=== PATIENT | female | born 1935 | race Caucasian/White ===

== ENCOUNTER 2019-06-08 10:52 | Inpatient (IN) ==
--- NOTE | 2019-06-08 11:33 | Emergency Department Note ---
Impression & Plan Ataxia, Vertigo ED Provider Note NAME: JONNY STEINBERG AGE: 83 SEX: F : 1935 ARRIVES VIA: Walk-In INFORMANT: Patient, ED PROVIDER(S): Antonio Demarco DO CHIEF COMPLAINT: Dizziness HPI: The patient is an 83-year-old female who presented to the emergency department for an evaluation of disequilibrium and difficulty walking. Patient states that approximately 1 week ago she started noticing symptoms of vertigo. The patient states that she has ongoing symptoms which have been waxing and waning. She was started on Antivert by her primary care physician without any improvement. The patient initially was seen at an urgent care center. She was referred to the emergency department if symptoms did not improve over the next few days. The patient called her primary care physician in [facility] and is scheduled to follow-up with an ear nose and throat physician but not until July. The patient states her symptoms are worsened with any ambulation but also worsened with head movement. She states that her symptoms are very severe and she needs help with any ambulation. She currently is residing with her daughter. She denies any headache. She denies having any unilateral weakness in the arms or legs other than generalized weakness. The patient states that she was using a Q-tip on her ear and had some bleeding in her right ear. The patient denies having any chest pain. She denies any swelling in the legs. ROS: See above HPI for pertinent positives & negatives. A total of 10 systems reviewed and were otherwise negative. PAST MEDICAL HISTORY: See Below PAST SURGICAL HISTORY: See Below FAMILY HISTORY: See Below SOCIAL HISTORY: See Below HOME MEDICATIONS: See Below ALLERGIES: See Below VITALS: See Below PHYSICAL EXAMINATION: GENERAL: Patient is awake alert in no acute distress patient is resting comfortably and showing no signs of anxiety EYES: The conjunctivae are clear. The pupils are round and reactive. No nystagmus was elicited. EARS, NOSE, MOUTH AND THROAT: The nose is without any evidence of any deformity. Mucous membranes are moist. Tympanic membranes are clear. NECK: The neck is nontender and supple. RESPIRATORY: Normal respiratory effort is noted there is no evidence of wheezing rhonchi or rales CARDIOVASCULAR: Regular rate and rhythm noted there no murmurs rubs or gallops normal S1 normal S2. GASTROINTESTINAL: The abdomen is soft. Abdomen is nontender. MUSCULOSKELETAL/EXTREMITIES: There is no evidence of gross deformity full range of motion is noted in the hips and shoulders. SKIN: There is no obvious evidence of any rash. Trace pedal edema was noted bilaterally. NEUROLOGIC: Patient is awake alert and oriented x3 strength is symmetric patellar reflexes are 2+ bilaterally. There is no past-pointing with the upper extremities. MEDICAL DECISION MAKING: The patient is an 83-year-old female who presented to the emergency department for an evaluation of difficulty ambulating. The patient started noticing vertigo symptoms proximally 1 week ago today. She has increasing symptoms with turning of her head as well as trying to walk. The patient started noticing worsening in her ataxia over the last few days. She was initially seen at an urgent care center. She was then sent to follow-up with her primary care physician. She was unable to get a follow-up appointment with her ENT doctor and was referred back to the emergency department because of her symptoms. 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 The patient's blood vessels did not appear to show any acute occlusion. The patient was reevaluated multiple times. The patient did not do well with an ambulation trial. I discussed the patient's laboratory and radiographic studies with her. Given her ongoing symptoms as well as findings on CAT scan I do feel she may require further inpatient work-up and management. She may require further neuroimaging or possibly an evaluation by a neurologist. This reason I discussed her case with the on-call [facility] hospitalist group. They have agreed to evaluate the patient in the emergency department for further management and disposition. Triage Nursing notes reviewed. Prior medical records reviewed Vital Signs: reviewed and remarkable for initial hypertension which improved on subsequent monitoring. Differential diagnosis: Benign positional vertigo, dehydration, hypovolemia, anemia, tumor, infection, hypoglycemia, electrolyte abnormalities, cardiac sources, intracerebral event, toxicologic, neurologic, as well as other pathologies. ER treatment provided: See below Diagnostics interpreted by me: ECG: EKG was obtained in the emergency department. My interpretation is sinus bradycardia at 58 bpm. There was no ectopy. Right bundle branch block pattern was noted. No previous tracing was available for comparison. Cardiac Monitoring: An order was placed for continuous cardiac monitoring. The monitor shows a rate of 62 with sinus rhythm. Laboratory studies: As stated above and show below. Imaging studies: See below Consultation(s): 1420: I discussed this case with Dr. Mccollum. He is covering for the [facility] hospitalist group. He is agreed to evaluate the patient in the emergency department for further management and disposition. ED COURSE: Procedures: none Past Med/Surg History Medical History Esophageal cancer High cholesterol Hypothyroid Surgical History H/O: hysterectomy History of bunionectomy Hx of cholecystectomy Social History Feels Safe at Home: Yes Smoking Status: Former smoker Allergies Allergies Allergy/AdvReac Type Severity Reaction Status Date / Time No Known Allergies Allergy Verified 06/08/19 14:02 Home Meds Home Medications Medication Instructions Recorded Confirmed aspirin [Aspirin Low Dose] 81 mg PO DAILY 06/08/19 06/08/19 calcium carbonate [Calcium 600] 0 mg PO DAILY 06/08/19 06/08/19 cholecalciferol (vitamin D3) 0 mcg PO DAILY 06/08/19 06/08/19 [Vitamin D3] levothyroxine 25 mcg PO QAM 06/08/19 06/08/19 meclizine 12.5 mg PO UD PRN 06/08/19 06/08/19 multivitamin 1 tab PO DAILY 06/08/19 06/08/19 ondansetron 4 mg PO UD PRN 06/08/19 06/08/19 rosuvastatin 10 mg PO QPM 06/08/19 06/08/19 Results & Data (ED) Vital Signs Vital Signs - 24 hr 06/08/19 10:56 06/08/19 11:12 06/08/19 11:20 Temperature 36.7 C Temperature Source Oral Pulse Rate 78 68 63 Pulse Rate from SpO2 Sensor Respiratory Rate 20 20 17 Respiratory Effort / Characteristics Non-Labored Respiratory Depth Normal Blood Pressure 195/88 H Blood Pressure Mean 123 Pulse Oximetry 98 Oxygen Delivery Method Room Air Sepsis Action Taken by Nursing No Action Required 06/08/19 11:30 06/08/19 11:40 06/08/19 11:50 Temperature Temperature Source Pulse Rate 70 64 67 Pulse Rate from SpO2 Sensor Respiratory Rate 20 16 19 Respiratory Effort / Characteristics Respiratory Depth Blood Pressure Blood Pressure Mean Pulse Oximetry Oxygen Delivery Method Sepsis Action Taken by Nursing 06/08/19 12:00 06/08/19 12:10 06/08/19 12:20 Temperature Temperature Source Pulse Rate 60 59 L 58 L Pulse Rate from SpO2 Sensor Respiratory Rate 18 20 1 L Respiratory Effort / Characteristics Respiratory Depth Blood Pressure Blood Pressure Mean Pulse Oximetry Oxygen Delivery Method Sepsis Action Taken by Nursing 06/08/19 12:35 06/08/19 12:40 06/08/19 12:41 Temperature Temperature Source Pulse Rate 63 59 L 67 Pulse Rate from SpO2 Sensor 59 L 67 Respiratory Rate 19 20 15 Respiratory Effort / Characteristics Respiratory Depth Blood Pressure 128/88 Blood Pressure Mean 101 Pulse Oximetry 96 94 Oxygen Delivery Method Sepsis Action Taken by Nursing 06/08/19 12:50 06/08/19 13:00 06/08/19 13:10 Temperature Temperature Source Pulse Rate 61 58 L 57 L Pulse Rate from SpO2 Sensor 60 58 L 57 L Respiratory Rate 18 18 18 Respiratory Effort / Characteristics Respiratory Depth Blood Pressure 121/61 Blood Pressure Mean 78 Pulse Oximetry 92 94 95 Oxygen Delivery Method Sepsis Action Taken by Nursing 06/08/19 13:20 06/08/19 13:30 06/08/19 13:40 Temperature Temperature Source Pulse Rate 63 62 62 Pulse Rate from SpO2 Sensor Respiratory Rate 21 15 17 Respiratory Effort / Characteristics Respiratory Depth Blood Pressure Blood Pressure Mean Pulse Oximetry Oxygen Delivery Method Sepsis Action Taken by Nursing 06/08/19 13:50 06/08/19 14:00 06/08/19 14:10 Temperature Temperature Source Pulse Rate 57 L 56 L 58 L Pulse Rate from SpO2 Sensor Respiratory Rate 19 17 19 Respiratory Effort / Characteristics Respiratory Depth Blood Pressure Blood Pressure Mean Pulse Oximetry Oxygen Delivery Method Sepsis Action Taken by Nursing 06/08/19 14:20 06/08/19 14:30 06/08/19 14:37 Temperature Temperature Source Pulse Rate 58 L 56 L 58 L Pulse Rate from SpO2 Sensor Respiratory Rate 19 17 20 Respiratory Effort / Characteristics Respiratory Depth Blood Pressure 131/65 Blood Pressure Mean 95 Pulse Oximetry 96 Oxygen Delivery Method Sepsis Action Taken by Nursing Laboratory Data Attestation: I reviewed the patient's lab results. Result diagrams: 06/08/19 11:50 06/08/19 11:50 Lab Results 06/08/19 06/08/19 06/08/19 Range/Units 11:50 11:50 11:50 WBC 5.66 (4.8-10.8) K/uL RBC 4.67 (4.2-5.4) M/uL Hgb 15.4 (12.0-16.0) g/dL Hct 46.2 (37-47) % MCV 98.9 (80-100) fL MCH 33.0 (25-34) pg MCHC 33.3 (32-36) g/dL RDW Std Deviation 51.5 H (36.4-46.3) fL RDW Coeff of Eros 14.3 (11.5-14.5) % Plt Count 199 (130-400) K/uL MPV 9.5 (7.4-10.4) fL Immature Gran % (Auto) 0.0 % Neut % (Auto) 51.4 % Lymph % (Auto) 32.9 % [place] % (Auto) 11.7 % Eos % (Auto) 3.5 % Baso % (Auto) 0.5 % Immature Gran # (Auto) 0.00 (0.00-0.02) K/uL Neut # (Auto) 2.91 (1.4-6.5) K/uL Lymph # (Auto) 1.86 (1.2-3.4) K/uL [place] # (Auto) 0.66 H (0.11-0.59) K/uL Eos # (Auto) 0.20 (0-0.5) K/uL Baso # (Auto) 0.03 (0-0.2) K/uL PT 10.9 (9.0-12.0) Seconds INR 1.0 (0.9-1.1) APTT 26.8 (21.0-31.0) Seconds PTT Ratio 1.0 Sodium 138 (136-145) mmol/L Potassium 4.7 (3.5-5.1) mmol/L Chloride 104 (98-107) mmol/L Carbon Dioxide 30 (21-32) mmol/L Anion Gap 4.0 (3-11) BUN 16 (7-18) mg/dl Creatinine 0.93 (0.6-1.2) mg/dl Est Cr Clr Drug Dosing 38.8 ml/min Est GFR ( Amer) 66.3 Est GFR (Non-Af Amer) 57.2 BUN/Creatinine Ratio 17.4 (10-20) Glucose 92 (70-99) mg/dl Calcium 9.3 (8.5-10.1) mg/dl Magnesium 2.4 (1.8-2.4) mg/dl Total Bilirubin 0.6 (0.2-1) mg/dl AST 20 (15-37) U/L ALT 25 (12-78) U/L Alkaline Phosphatase 92 (45-117) U/L Troponin I < 0.015 (0-0.045) ng/ml Total Protein 7.4 (6.4-8.2) gm/dl Albumin 3.5 (3.4-5.0) gm/dl Globulin 3.9 (2.5-4.0) gm/dl Albumin/Globulin Ratio 0.9 (0.9-2) Urine Color Urine Appearance (Clear) Urine pH (4.5-7.5) Ur Specific [place] (1.000-1.030) Urine Protein (Negative) Urine Glucose (UA) (Negative) Urine Ketones (Negative) Urine Blood (Negative) Urine Nitrite (Negative) Urine Bilirubin (Negative) Urine Urobilinogen (Negative) Ur Leukocyte Esterase (Negative) Urine WBC (Auto) (0-5) /hpf Urine RBC (Auto) (0-4) /hpf U Hyaline Cast (Auto) (0-5) /lpf U Epithel Cells (Auto) (0-5) /lpf Urine Bacteria (Auto) (Negative) 06/08/19 Range/Units 14:37 WBC (4.8-10.8) K/uL RBC (4.2-5.4) M/uL Hgb (12.0-16.0) g/dL Hct (37-47) % MCV (80-100) fL MCH (25-34) pg MCHC (32-36) g/dL RDW Std Deviation (36.4-46.3) fL RDW Coeff of Eros (11.5-14.5) % Plt Count (130-400) K/uL MPV (7.4-10.4) fL Immature Gran % (Auto) % Neut % (Auto) % Lymph % (Auto) % [place] % (Auto) % Eos % (Auto) % Baso % (Auto) % Immature Gran # (Auto) (0.00-0.02) K/uL Neut # (Auto) (1.4-6.5) K/uL Lymph # (Auto) (1.2-3.4) K/uL [place] # (Auto) (0.11-0.59) K/uL Eos # (Auto) (0-0.5) K/uL Baso # (Auto) (0-0.2) K/uL PT (9.0-12.0) Seconds INR (0.9-1.1) APTT (21.0-31.0) Seconds PTT Ratio Sodium (136-145) mmol/L Potassium (3.5-5.1) mmol/L Chloride (98-107) mmol/L Carbon Dioxide (21-32) mmol/L Anion Gap (3-11) BUN (7-18) mg/dl Creatinine (0.6-1.2) mg/dl Est Cr Clr Drug Dosing ml/min Est GFR ( Amer) Est GFR (Non-Af Amer) BUN/Creatinine Ratio (10-20) Glucose (70-99) mg/dl Calcium (8.5-10.1) mg/dl Magnesium (1.8-2.4) mg/dl Total Bilirubin (0.2-1) mg/dl AST (15-37) U/L ALT (12-78) U/L Alkaline Phosphatase (45-117) U/L Troponin I (0-0.045) ng/ml Total Protein (6.4-8.2) gm/dl Albumin (3.4-5.0) gm/dl Globulin (2.5-4.0) gm/dl Albumin/Globulin Ratio (0.9-2) Urine Color Yellow Urine Appearance Clear (Clear) Urine pH 5.0 (4.5-7.5) Ur Specific [place] 1.045 H (1.000-1.030) Urine Protein Negative (Negative) Urine Glucose (UA) Negative (Negative) Urine Ketones Negative (Negative) Urine Blood Trace H (Negative) Urine Nitrite Negative (Negative) Urine Bilirubin Negative (Negative) Urine Urobilinogen Negative (Negative) Ur Leukocyte Esterase Negative (Negative) Urine WBC (Auto) 0 (0-5) /hpf Urine RBC (Auto) 0-4 (0-4) /hpf U Hyaline Cast (Auto) 1-5 (0-5) /lpf U Epithel Cells (Auto) 10-20 H (0-5) /lpf Urine Bacteria (Auto) Negative (Negative) Administered Medications Ioversol (Optiray 320 125ml) 119 ml IV ONCE PRN PRN Reason: Interaction Checking Stop: 06/12/19 12:25 Last Admin: 06/08/19 12:26 Dose: 119 ml Documented by: [id number] Discontinued Medications Labetalol HCl (Normodyne) 10 mg IV NOW STA Stop: 06/08/19 14:13 Last Admin: 06/08/19 14:39 Dose: Not Given Documented by: [id number] Meclizine HCl (Antivert) 25 mg PO NOW STA Stop: 06/08/19 13:20 Last Admin: 06/08/19 14:34 Dose: 25 mg Documented by: [id number] Imaging Data Radiologist's Impression: XR chest 1V portable CLINICAL HISTORY: weakness dyspnea COMPARISON STUDY: No previous studies for comparison. FINDINGS: The bones soft tissues and hemidiaphragms are normal. The cardiome diastinal silhouette is normal. The lungs are clear. The pulmonary vasculature is normal. IMPRESSION: Negative chest. ACT 112: Negative or not required by law. The above report was generated using voice recognition software. It may contain grammatical, syntax or spelling errors. Electronically signed by: Tarik Howard M.D. 06/08/2019 12:14 PM Dictated: 06/08/19 1214 Transcribed: 06/08/[address] angio neck with con HISTORY: Stroke evaluation TECHNIQUE: Multiaxial CT angiography of the neck was performed IV contrast: 100 cc All measurements were calculated based on NASCET criteria. Maximum intensity projection images were also obtained. A dose lowering technique was utilized adhering to the principles of ALARA. COMPARISON STUDY: None. FINDINGS: The aortic arch and proximal great vessels are widely patent. 50% atherosclerotic narrowing proximal left internal carotid artery and left carotid bifurcation. Minimal plaque formation right carotid bifurcation. No significant stenosis of the vertebral basilar system. IMPRESSION: 50% stenosis left carotid bifurcation and proximal left internal carotid artery. No evidence for high-grade or significant stenotic process. ACT 112: Negative or not required by law. The above report was generated using voice recognition software. It may contain grammatical, syntax or spelling errors. Electronically signed by: Tarik Howard M.D. 06/08/2019 12:[address] angio head w con HISTORY: Status change Stroke evaluation TECHNIQUE: Multiaxial CT angiography of the head was performed IV contrast: None. Maximum intensity projection images were also obtained. A dose lowering technique was utilized adhering to the principles of ALARA. COMPARISON: None. FINDINGS: There is no mass, hematoma, midline shift, or acute infarct. Visualized intracranial internal carotid arteries, distal vertebral arteries, and basilar artery are widely patent. There is no significant stenosis, occlusion, or aneurysm seen within the bilateral ACAs, MCAs, or research software engineer. IMPRESSION: No significant stenosis, occlusion, or aneurysm within the [place]. Moderate atherosclerotic plaque formation at the carotid siphons ACT 112: Negative or not required by law. The above report was generated using voice recognition software. It may contain grammatical, syntax or spelling errors. Electronically signed by: Tarik Howard M.D. 06/08/2019 12:41 PM Dictated: 06/08/19 1240 Transcribed: 06/08/[address] head/brain wo con CT DOSE: 997.03 mGy.cm HISTORY: Mental status change Stroke evaluation TECHNIQUE: Multiaxial CT images of the head were performed without the use of intravenous contrast. A dose lowering technique was utilized adhering to the principles of ALARA. Comparison: None. Findings: The paranasal sinuses and mastoid air cells are clear. The calvarium and skull base are intact. The ventricles and sulci are within normal limits. There is no mass, hematoma, midline shift, or acute infarct. 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 Old right occipital infarct ACT 112: Negative or not required by law. The above report was generated using voice recognition software. It may contain grammatical, syntax or spelling errors. Electronically signed by: Tarik Howard M.D. 06/08/2019 12:33 PM Dictated: 06/08/19 1232 Transcribed: 06/08/19 1232 Blood Pressure Blood Pressure Findings: Normal blood pressure Discharge Plan Visit Data Chief Complaint: Vertigo Stated Complaint: DIZZY FOR A WEEK ED Provider: Antonio Demarco Discharge Problem: Ataxia, Vertigo Patient Disposition: Being Evaluated by Hospitalist Condition: Good Forms Stand Alone Forms: [employer] Prescriptions Prescriptions: No Action multivitamin Tablet 1 tab PO DAILY RF: 0 meclizine 12.5 mg tablet 12.5 mg PO UD PRN (Reason: Dizziness) RF: 0 aspirin [Aspirin Low Dose] 81 mg Tablet,Delayed Release (Dr/Ec) 81 mg PO DAILY RF: 0 levothyroxine 25 mcg tablet 25 mcg PO QAM RF: 0 calcium carbonate [Calcium 600] 600 mg calcium (1,500 mg) Tablet 0 mg PO DAILY RF: 0 ondansetron 4 mg tablet,disintegrating 4 mg PO UD PRN (Reason: Nausea) RF: 0 cholecalciferol (vitamin D3) [Vitamin D3] 25 mcg (1,000 unit) Capsule 0 mcg PO DAILY RF: 0 rosuvastatin 10 mg tablet 10 mg PO QPM RF: 0 Referrals Referrals: Laura Thomas NP [Primary Care Provider] -
[2019-06-08 12:00] LABS: Basophils # (auto) 0.03 K/uL (0-0.2); Basophils % (auto) 0.5 %; Eosinophils % (auto) 3.5 %; Hematocrit (blood only) 46.2 % (37-47); Hemoglobin 15.4 g/dL (12.0-16.0); Lymphocytes # (auto) 1.86 K/uL (1.2-3.4); Lymphocytes % (auto) 32.9 %; Mean Corpuscular Hgb Conc 33.3 g/dL (32-36); Mean Corpuscular Volume 98.9 fL (80-100); Mean Platelet Volume 9.5 fL (7.4-10.4); Monocytes # (auto) 0.66 K/uL (0.11-0.59); Monocytes % (auto) 11.7 %; Neutrophils # (auto) 2.91 K/uL (1.4-6.5); Neutrophils % (auto) 51.4 %; Platelet Count 199 K/uL (130-400); RDW Coefficient of Variation 14.3 % (11.5-14.5); RDW Standard Deviation 51.5 fL (36.4-46.3); Red Blood Count 4.67 M/uL (4.2-5.4); White Blood Count 5.66 K/uL (4.8-10.8)
[2019-06-08 12:16] LABS: Partial Thromboplastin Time 26.8 Seconds (21.0-31.0); Prothrombin Time 10.9 Seconds (9.0-12.0)
--- NOTE | 2019-06-08 12:16 | XRay Report ---
XR chest 1V portable CLINICAL HISTORY: weakness dyspnea COMPARISON STUDY: No previous studies for comparison. FINDINGS: The bones soft tissues and hemidiaphragms are normal. The cardiomediastinal silhouette is n ormal. The lungs are clear. The pulmonary vasculature is normal. IMPRESSION: Negative chest. ACT 112: Negative or not required by law. The above report was generated using voice recognition software. It may contain grammatical, syntax or spelling errors. Electronically signed by: Tarik Howard M.D. 06/08/2019 12:14 PM
[2019-06-08 12:17] LABS: Alanine Aminotransferase 25 U/L (12-78); Albumin Level 3.5 gm/dl (3.4-5.0); Aspartate Aminotransferase 20 U/L (15-37); BUN Creatinine Ratio 17.4 (10-20); Blood Urea Nitrogen 16 mg/dl (7-18); Calcium 9.3 mg/dl (8.5-10.1); Carbon Dioxide 30 mmol/L (21-32); Chloride 104 mmol/L (98-107); Creatinine Clr Calc Pharmacy 38.8 ml/min; Est GFR (African American) 66.3; Est GFR (Non-African American) 57.2; Glucose 92 mg/dl (70-99); Magnesium 2.4 mg/dl (1.8-2.4); Potassium 4.7 mmol/L (3.5-5.1); Sodium 138 mmol/L (136-145)
[2019-06-08 12:21] LABS: Albumin Globulin Ratio 0.9 (0.9-2); Alkaline Phosphatase 92 U/L (45-117); Bilirubin,Total 0.6 mg/dl (0.2-1); Globulin 3.9 gm/dl (2.5-4.0); Total Protein 7.4 gm/dl (6.4-8.2); Troponin I < 0.015 ng/ml (0-0.045)
[2019-06-08] MEDS ORDERED: OPTIRAY 320 125ml IV PRN (12:26)
--- NOTE | 2019-06-08 12:34 | CT Scan Report ---
CT head/brain wo con CT DOSE: 997.03 mGy.cm HISTORY: Mental status change Stroke evaluation TECHNIQUE: Multiaxial CT images of the head were performed without the use of intravenous contrast. A dose lowering technique was utilized adhering to the principles of ALARA. Comparison: None. Findings: The paranasal sinuses and mastoid air cells are clear. The calvarium and skull base are int act. The ventricles and sulci are within normal limits. There is no mass, hematoma, midline shift, or acute infarct. 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 Old right occipital infarct ACT 112: Negative or not required by law. The above report was generated using voice recognition software. It may contain grammatical, syntax or spelling errors. Electronically signed by: Tarik Howard M.D. 06/08/2019 12:33 PM
--- NOTE | 2019-06-08 12:41 | CT Scan Report ---
CT angio neck with con HISTORY: Stroke evaluation TECHNIQUE: Multiaxial CT angiography of the neck was performed IV contrast: 100 cc All measurements were calculated based on NASCET criteria. Maximum intensity projection images were also obtained. A dose lowering technique was utilized adhering to the principles of ALARA. COMPARISON STUDY: None. FINDINGS: The aortic arch and proximal great vessels are widely patent. 50% atherosclerotic narrowin g proximal left internal carotid artery and left carotid bifurcation. Minimal plaque formation right carotid bifurcation. No significant stenosis of the vertebral basilar system. IMPRESSION: 50% stenosis left carotid bifurcation and proximal left internal carotid artery. No evidence for high -grade or significant stenotic process. ACT 112: Negative or not required by law. The above report was generated using voice recognition software. It may contain grammatical, syntax or spelling errors. Electronically signed by: Tarik Howard M.D. 06/08/2019 12:39 PM
--- NOTE | 2019-06-08 12:43 | CT Scan Report ---
CT angio head w con HISTORY: Status change Stroke evaluation TECHNIQUE: Multiaxial CT angiography of the head was performed IV contrast: None. Maximum intensit y projection images were also obtained. A dose lowering technique was utilized adhering to the princ iplUlises. COMPARISON: None. FINDINGS: There is no mass, hematoma, midline shift, or acute infarct. Visualized intracranial international accounting manager al carotid arteries, distal vertebral arteries, and basilar artery are widely patent. There is no sig nificant stenosis, occlusion, or aneurysm seen within the bilateral ACAs, MCAs, or chief dispatcher. IMPRESSION: No significant stenosis, occlusion, or aneurysm within the [place]. Moderate atherosclerotic plaque formation at the carotid siphons ACT 112: Negative or not required by law. The above report was generated using voice recognition software. It may contain grammatical, syntax or spelling errors. Electronically signed by: Tarik Howard M.D. 06/08/2019 12:41 PM
[2019-06-08] MEDS ORDERED: MECLIZINE HCL 25 MG TAB PO STA (13:19)
[2019-06-08] MEDS ORDERED: LABETALOL HCL IV 5 MG/ML 20ML IV STA (14:12)
--- NOTE | 2019-06-08 14:36 | Electrocardiogram Report ---
Test Reason : Blood Pressure : / mmHG Vent. Rate : 058 BPM Atrial Rate : 058 BPM P-R Int : 192 ms QRS Dur : 114 ms QT Int : 446 ms P-R-T Axes : 082 -09 041 degrees QTc Int : 437 ms Sinus bradycardia Right bundle branch block Borderline ECG No previous ECGs available Confirmed by Nirav Rhodes ([id number]) on 06/08/2019 2:35:47 PM Referred By: REFERRED SELF Confirmed By:Alli Rhodes
[2019-06-08 14:52] LABS: Appearance Urine Clear (Clear); Bacteria Urine Automated Negative (Negative); Bilirubin Urine Negative (Negative); Blood Urine Trace (Negative); Color Urine Yellow; Glucose Urine UA Negative (Negative); Ketones Urine Negative (Negative); Leukocyte Esterase Urine Negative (Negative); Nitrite Urine Negative (Negative); Protein Urine Negative (Negative); RBC Urine Automated 0-4 /hpf (0-4); Specific Gravity Urine 1.045 (1.000-1.030); Urobilinogen Urine Negative (Negative); WBC Urine Automated 0 /hpf (0-5)
--- NOTE | 2019-06-08 16:02 | History & Physical Report ---
Date of Service June 08, 2019 Assessment & Plan (1) Vertigo: Vertigo seems more benign positional vertigo especially considering worsening with head tilt and no other symptoms. However, patient did have incidental finding of a previous occipital stroke with questionable history in the past. Patient has significant ataxia and will be placed in observation. Index of suspicion that this is new CVAs very low. Check MRI of the brain. Trial of ATC Antivert. S neurology to evaluate for further recommendations. PT/OT evaluation. (2) CVA, old, disturbances of vision: Patient did evidence of an old CVA on CT scan. MRI as noted above. Patient is on low-dose aspirin. Check fasting lipids. Continue Crestor as previously ordered. (3) High cholesterol: Crestor as noted above. (4) Hypothyroid: Levothyroxine as noted above (5) Carotid stenosis: Patient with carotid stenosis on the left of around 50%. I suspect this may be incidental. Continue low-dose aspirin. Check fasting lipids, consider increasing Crestor depending on results. History of Present Illness Primary Care Provider: Laura Fallon NP This is a very pleasant 83-year-old female with past medical history of esophageal cancer, hypercholesterolemia, and hypothyroidism that presents with complaints of acute vertigo. Patient is a good historian although somewhat limited on past medical history. Patient tells me that approximately 1 week ago she started to experience symptoms of vertigo. This was very sudden onset, occurring in the late morning on . She states that there is a waxing and waning character to it although in the past 2-3 days it is become much worse. She denies any headaches with this but she does have ataxia when it is severe. She tells me is worse with any movement of the head including lying flat. She denies any problems with her hearing or tinnitus. She denies any headache or other neurological symptoms. At the time my evaluation the patient tells me that she is not having any symptoms but feel that she would if she sat backwards. 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 This has been accompanied with a headache but the patient did not seek medical attention at that time. This is relevant as the patient was found to have a previous small occipital CVA on initial CT. she did also note a previous 99% stenosis of a carotid, she cannot recall which side. She was previously evaluated [facility] for [facility]. Although typically there is no intervention for complete carotid blockage, I did describe CEA and she does recall having this in the past but again cannot recall which side. Allergies Allergy/AdvReac Type Severity Reaction Status Date / Time No Known Allergies Allergy Verified 06/08/19 14:02 Home Medications Home Medications Medication Instructions Recorded Confirmed Type aspirin [Aspirin Low Dose] 81 mg PO DAILY 06/08/19 06/08/19 History calcium carbonate [Calcium 600] 0 mg PO DAILY 06/08/19 06/08/19 History cholecalciferol (vitamin D3) 0 mcg PO DAILY 06/08/19 06/08/19 History [Vitamin D3] levothyroxine 25 mcg PO QAM 06/08/19 06/08/19 History meclizine 12.5 mg PO UD PRN 06/08/19 06/08/19 History multivitamin 1 tab PO DAILY 06/08/19 06/08/19 History ondansetron 4 mg PO UD PRN 06/08/19 06/08/19 History rosuvastatin 10 mg PO QPM 06/08/19 06/08/19 History Past Med/Surg History Medical History Esophageal cancer High cholesterol Hypothyroid Surgical History H/O: hysterectomy History of bunionectomy Hx of cholecystectomy Social History Feels Safe at Home: Yes Smoking Status: Former smoker Review of Systems Constitutional: no fever, no chills, no weakness, no weight loss and no weight gain Eyes: as per Subjective / HPI Respiratory: no cough, no chest congestion, no dyspnea and no dyspnea on exertion Cardiovascular: no chest pain, no orthopnea, no palpitations, no lightheadedness and no edema Gastrointestinal: no abdominal pain, no nausea, no vomiting, no constipation and no diarrhea/loose stools Genitourinary: no dysuria, no difficulty urinating, no urinary frequency, no urinary hesitancy, no urinary urgency and no flank pain Musculoskeletal: no back pain, no neck pain, no joint pain, no stiffness and no myalgia Integumentary: no rash Neurologic: + lack of coordination; no gait abnormality, no unsteadiness, no falls, no generalized weakness, no loss of sensation, no paresthesia, no tremor(s), no abnormal movements, no headache(s), no abnormal speech and no confusion vertigo Physical Exam Constitutional: cooperative; no acute distress Eyes: no nystagmus Neck: trachea midline, no thyromegaly Respiratory: normal respiratory effort Auscultation: lungs clear to auscultation bilaterally; no crackles, no rales, no rhonchi and no wheezes Cardiovascular: Rate/Rhythm: regular rate and regular rhythm Heart Sounds: normal S1 and normal S2 Vessels: no JVD and no carotid bruit Gastrointestinal (Abdomen): Inspection/Auscultation: abdomen normal to inspection Percussion/Palpation: abdomen soft; abdomen nontender, no guarding, abdomen not rigid and no hepatosplenomegaly Skin: no rashes, warm and dry Results & Data Results & Data ([facility]) Vital Signs (Past 12 Hours) Vital Signs Temp Pulse Resp BP Pulse Ox 06/08/19 15:10 60 20 06/08/19 15:01 60 19 118/75 06/08/19 15:00 60 19 06/08/19 14:50 66 18 06/08/19 14:40 60 20 06/08/19 14:37 58 L 20 131/65 96 06/08/19 14:30 56 L 17 06/08/19 14:20 58 L 19 06/08/19 14:10 58 L 19 06/08/19 14:00 56 L 17 06/08/19 13:50 57 L 19 06/08/19 13:40 62 17 06/08/19 13:30 62 15 06/08/19 13:20 63 21 06/08/19 13:10 57 L 18 95 06/08/19 13:00 58 L 18 121/61 94 06/08/19 12:50 61 18 92 06/08/19 12:41 67 15 128/88 94 06/08/19 12:40 59 L 20 96 06/08/19 12:35 63 19 06/08/19 12:20 58 L 1 L 06/08/19 12:10 59 L 20 06/08/19 12:00 60 18 06/08/19 11:50 67 19 06/08/19 11:40 64 16 06/08/19 11:30 70 20 06/08/19 11:20 63 17 06/08/19 11:12 68 20 06/08/19 10:56 36.7 C 78 20 195/88 H 98 Laboratory Results WBCs of 5.6, hemoglobin of 15.4, hematocrit of 46.2, platelets of 199. INR is 1. Sodium is 138, potassium 4.7, chloride 104, CO2 is 30, BUN is 16, creatinine is 0.93, glucose is 92. Calcium is 9.3. Magnesium is 2.4. LFTs are unremarkable and troponin is nondetectable. UA shows trace blood but is otherwise unremarkable. Diagnostic Findings XR chest 1V portable CLINICAL HISTORY: weakness dyspnea COMPARISON STUDY: No previous studies for comparison. FINDINGS: The bones soft tissues and hemidiaphragms are normal. The cardiomediastinal silhouette is normal. The lungs are clear. The pulmonary vasculature is normal. IMPRESSION: Negative chest. --- [place], [place] [phone] CT Scan Report Patient: JONNY STEINBERG Date: 06/08/19 MR#: [id number]: [address] Acct ID:[id number]: [address] Date: 1935[facility] Zip: [place] [address] Age: 83Location: ED Sex: F Room/Bed: Att Phy:Diagnosis: DIZZY FOR A WEEK Sita Phy: Javed FALLON Date: 06/08/19 Fam Phy:Interpreting Phy: Tarik Howard MD Admit Phy: Ordering Phy: Antonio Demarco DO cc: ~ CT head/brain wo con CT DOSE: 997.03 mGy.cm HISTORY: Mental status change Stroke evaluation TECHNIQUE: Multiaxial CT images of the head were performed without the use of intravenous contrast. A dose lowering technique was utilized adhering to the principles of ALARA. Comparison: None. Findings: The paranasal sinuses and mastoid air cells are clear. The calvarium and skull base are intact. The ventricles and sulci are within normal limits. There is no mass, hematoma, midline shift, or acute infarct. 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 Old right occipital infarct --- CT angio head w con HISTORY: Status change Stroke evaluation TECHNIQUE: Multiaxial CT angiography of the head was performed IV contrast: None. Maximum intensity projection images were also obtained. A dose lowering technique was utilized adhering to the principles of ALARA. COMPARISON: None. FINDINGS: There is no mass, hematoma, midline shift, or acute infarct. Visualized intracranial internal carotid arteries, distal vertebral arteries, and basilar artery are widely patent. There is no significant stenosis, occlusion, or aneurysm seen within the bilateral ACAs, MCAs, or research center partner. IMPRESSION: No significant stenosis, occlusion, or aneurysm within the ruby of Gonzalez. Moderate atherosclerotic plaque formation at the carotid siphons --- CT angio neck with con HISTORY: Stroke evaluation TECHNIQUE: Multiaxial CT angiography of the neck was performed IV contrast: 100 cc All measurements were calculated based on NASCET criteria. Maximum intensity projection images were also obtained. A dose lowering technique was utilized adhering to the principles of ALARA. COMPARISON STUDY: None. FINDINGS: The aortic arch and proximal great vessels are widely patent. 50% atherosclerotic narrowing proximal left internal carotid artery and left carotid bifurcation. Minimal plaque formation right carotid bifurcation. No significant stenosis of the vertebral basilar system. IMPRESSION: 50% stenosis left carotid bifurcation and proximal left internal carotid artery. No evidence for high-grade or significant stenotic process. PG Care Time/CCT Total # of Minutes Spent Total Time Spent with Patient: Total time spent is greater than 50% in coordination of care (as documented) at patient's floor/unit and/or counseling patient: Coding Level of Care Code 49769 OBS Care - Level 3 Diagnoses Vertigo R42 CVA, old, disturbances of vision I69.398; H53.9 High cholesterol E78.00 Hypothyroid E03.9 Carotid stenosis I65.29
[2019-06-08] MEDS ORDERED: POLYETHYLENE (MIRALAX) 17 GM PACK PO PRN (17:11)
[2019-06-08] MEDS ORDERED: ZOLPIDEM TARTRATE 5 MG TAB PO PRN (17:11)
[2019-06-08] MEDS ORDERED: MAGNESIUM HYDROXIDE SUSP 30 ML UDC PO PRN (17:11)
[2019-06-08] MEDS ORDERED: ONDANSETRON INJ 2 MG/ML 2 ML VIAL IV PRN (17:11)
[2019-06-08] MEDS ORDERED: ACETAMINOPHEN 325 MG TAB PO PRN (17:11)
--- NOTE | 2019-06-08 19:11 | Magnetic Resonance Report ---
MR brain wo con HISTORY: 83 years-old Female vertigo, old CVA acute dizziness with vertigo COMPARISON: CT head, CTA head and neck of same day TECHNIQUE: Planar multisequence MRI of the brain was obtained without the use of IV contrast. FINDINGS: Vp Medical localizer images demonstrate no gross extracranial abnormality. There is no restricted diffusio n to suggest acute or subacute infarct. The midline structures including the corpus callosum, brainst em, optic chiasm, pituitary and pineal glands appear unremarkable on the sagittal T1 series. No cereb ellar tonsillar herniation. Degenerative changes are noted about the imaged cervical spine. No acute intracranial hemorrhage, midline shift, abnormal extra-axial collection, hydrocephalus or in tracranial mass.. Encephalomalacia and gliosis of the right occipital lobe from remote infarct. Mild age-related involutional changes with mild scattered T2/FLAIR hyperintensities suggestive of chronic microvascular ischemic disease. Major vascular flow voids are patent. Mastoid air cells are clear. Mi ld rightward bowing and spurring of the nasal septum. Mild mucosal thickening of a few ethmoid air ce lls. Paranasal sinuses are otherwise generally clear. Prior bilateral cataract repair. The skull and soft tissues are within normal limits. IMPRESSION: 1. No acute intracranial abnormality, specifically there is no acute or subacute infarct. 2. Age-related involutional changes with mild chronic microvascular ischemic disease. 3. Remote right occipital lobe infarct. ACT 112: Negative or not required by law. The above report was generated using voice recognition software. It may contain grammatical, syntax o r spelling errors. Electronically signed by: Gus Tai M.D. 06/08/2019 7:10 PM
[2019-06-08] MEDS: ENOXAPARIN INJ 40 MG/0.4 ML SYR SQ SCH (20:00)
[2019-06-08] MEDS: ROSUVASTATIN CALCIUM 10 MG TAB PO SCH (20:00)
[2019-06-08] MEDS: MECLIZINE 12.5 MG TAB PO SCH (20:00)
[2019-06-09] MEDS: LEVOTHYROXINE SODIUM 25 MCG TABLET PO SCH (05:55)
[2019-06-09 06:57] LABS: Basophils # (auto) 0.04 K/uL (0-0.2); Basophils % (auto) 0.7 %; Eosinophils # (auto) 0.14 K/uL (0-0.5); Eosinophils % (auto) 2.5 %; Hematocrit (blood only) 41.8 % (37-47); Immature Granulocytes # (auto) 0.01 K/uL (0.00-0.02); Immature Granulocytes % (auto) 0.2 %; Lymphocytes # (auto) 1.95 K/uL (1.2-3.4); Lymphocytes % (auto) 34.8 %; Mean Corpuscular Hemoglobin 32.8 pg (25-34); Mean Corpuscular Hgb Conc 33.5 g/dL (32-36); Mean Corpuscular Volume 97.9 fL (80-100); Mean Platelet Volume 9.6 fL (7.4-10.4); Monocytes # (auto) 0.71 K/uL (0.11-0.59); Monocytes % (auto) 12.7 %; Neutrophils # (auto) 2.76 K/uL (1.4-6.5); Neutrophils % (auto) 49.1 %; Platelet Count 174 K/uL (130-400); RDW Coefficient of Variation 14.3 % (11.5-14.5); RDW Standard Deviation 51.3 fL (36.4-46.3); Red Blood Count 4.27 M/uL (4.2-5.4); White Blood Count 5.61 K/uL (4.8-10.8)
[2019-06-09 07:31] LABS: BUN Creatinine Ratio 17.2 (10-20); Calcium 8.5 mg/dl (8.5-10.1); Creatinine Clr Calc Pharmacy 32.3 ml/min; Est GFR (African American) 51.9; Est GFR (Non-African American) 44.7; Magnesium 2.2 mg/dl (1.8-2.4)
[2019-06-09] MEDS: CALCIUM CARBONATE 1250MG TAB PO SCH (09:16)
[2019-06-09] MEDS: MULTIVITAMIN TAB PO SCH (09:16)
[2019-06-09] MEDS: ASPIRIN 81 MG ECTAB PO SCH (09:16)
[2019-06-09] MEDS: MECLIZINE 12.5 MG TAB PO SCH ×2 (09:17→13:32)
--- NOTE | 2019-06-09 12:43 | Hospitalist Progress Note ---
Date of Service June 09, 2019 Assessment & Plan (1) Vertigo: - Vertigo possibly secondary to BPPV or vestibulocochlear involvement - vestibular neuritis?? patient reports that her symptoms are worse with head tilt and movement but that that also occurs while she is lying and sitting still. Otoscopic exam completed and is negative. -Old right occipital stroke - no new acute findings on CT/MRI/MRA head and neck. -Continue PT/OT, noted significant ataxia on admission, improved today, dis cussed with PT at bedside. -MRI of the brain is negative, neck CTA and head CTA are negative as well. -Has been using antivert since last Wednesday, no change in sx. Await neurology to evaluate for further recommendations. -Consider prednisone dosing to help with sx? (2) CVA, old, disturbances of vision: -Patient with evidence of an old CVA on CT scan. MRI as noted above. -Patient is on low-dose aspirin. 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 (3) High cholesterol: -Rosuvastatin 10 mg daily (pt taking every other day at home for several months prior to this admit) (4) Hypothyroid: -Levothyroxine 25 mcg daily -check TSH (5) Carotid stenosis: -Patient with carotid stenosis on the left of around 50%. -Continue low-dose aspirin. -Rosuvastatin as above monitor as outpt (6) DVT prophylaxis: - Lali watson subcu CODE STATUS full code Disposition: Patient from home, living with daughter locally, typically lives on her own independently, likely discharge within 1-2 days Admission and Anticipated Discharge Date Admission Date: June 08, 2019 Supervising Physician Co-Signing Physician Notes PA Supervision Note: I did not personally see or examine the patient today, but I verified all davis points of STALIN Ferrara's assessment and plan with the following exceptions/additions: Neurology consultation reviewed. MRI of the brain with contrast was ordered Given bradycardia to the low 30s on telemetry overnight and is not on any AV muriel blocking agents, will order echocardiogram and continue telemetry monitoring ECG reviewed and shows right bundle branch block, no old EKG to compare to -Follow EKG in the morning -Continued stay Subjective The patient was seen and examined this morning. Patient reports feeling essentially no different compared to yesterday. She also complains of feeling very tired and fatigued for the last week. She has been taking Antivert as scheduled, and Zofran occasionally for nausea. She notes that her nausea/dry heaving has improved but that this was happening prior to her admission here. Earlier this morning she work with PT/OT and Laurel-Hallpike maneuver was completed, unsure at this point if it helped or not. Interestingly, the patient cleaned her ears last and noted to have bleeding from the right ear which covered 5 Q-tips approximately, and her symptoms with dizziness and the room spinning started that evening. She denies any purulent drainage from the right ear, further bleeding, pressure, decreased hearing, or tinnitus. She typically lives at home by herself, but has been living with her daughter for the last 4 weeks due to COVID-19 in quarantine. They thought that it would be better if she needed any medical help to have some family around. Review of Systems Review of Systems: Constitutional: No fever, sweats or chills Eyes: No diplopia, no worsening or blurred vision, + vertigo with minimal movement of head and with lying still ENT: normal hearing, no trouble swallowing Respiratory: No cough, sputum, dyspnea at rest or on exertion Cardiovascular: No chest pain, tightness or palpitations Abdomen: No pain, nausea, vomiting, diarrhea or constipation Musculoskeletal: No joint pain, calf pain, swelling Neurologic: No weakness, numbness/tingling, or balance problems Psychiatric: No anxiety or depression Skin: No rash or itch Physical Exam Physical Exam: General: awake, alert, no apparent distress Head: Normocephalic, atraumatic ENT: PERRL, EOMI, TM visualized, pearly rodriguez, no erythema of the canal, no pain with palpation of the tragus, no air-fluid levels behind TM, cone of light visua lized, no pharyngeal exudate, mucous membranes moist Chest: Clear to auscultation, on room air, no adventitious breath sounds Cardiac: Regular rate and rhythm, no murmur, no JVD, normal peripheral pulses, good capillary refill Abdominal: NABS x 4 quadrants, soft, nondistended, nontender to palpation, no rebound, guarding or tenderness Extremities: Normal inspection, no peripheral edema or erythema, calfs nontender to palpation Psych: Normal mood and affect Neuro: AAO x 3, no motor deficits, speech is clear, no peripheral sensory deficits Skin: no rash or erythema Results & Data Results & Data ([facility]) Vital Signs (Past 12 Hours) Vital Signs Temp Pulse Resp BP Pulse Ox 06/09/19 11:41 36.8 C 64 18 109/71 94 06/09/19 07:33 36.6 C 60 18 104/64 92 06/09/19 04:00 36.9 C 57 L 18 115/57 L 94 PG Care Time/CCT Total # of Minutes Spent Total Time Spent with Patient: Total time spent is greater than 50% in coordination of care (as documented) at patient's floor/unit and/or counseling patient: Coding Level of Care Code 44617 Subseq Hosp Care Lvl 3 Diagnoses Vertigo R42 CVA, old, disturbances of vision I69.398; H53.9 High cholesterol E78.00 Hypothyroid E03.9 Carotid stenosis I65.29 DVT prophylaxis Z29.9
--- NOTE | 2019-06-09 17:11 | Neurology Consultation ---
Date of Consultation June 09, 2019 Assessment & Plan (1) High cholesterol: (2) Vertigo: Yesenia Oscar is an 83 yo woman w/ PMH of esophageal cancer s/p chemo/radiation (last in 2011), HLD and hypothyroidism who p/t [facility] after a one week history of acute onset dizziness. # Dizzy episodes: there is no clear peripheral vestibular component on exam today by myself or PT to suggest BPPV or vestibular neuritis as cause of dizziness. She does not have a h/o migraines to suggest vestibular migraine. Given intermittent bradycardia and sensation that she is going to fall if she does not sit down, may have an arrhythmia as cause of symptoms (possibly symptomatic bradycardia). Other things in the ddx includes leptomeningeal carcinomatosis given h/o esophageal cancer vs vertebrobasilar insufficiency from stenosis of R vert at the origin, less likely seizure. - please obtain MRI brain with contrast to r/o leptomeningeal enhancement - I asked pt to contact nursing should she have any further episodes and to have the primary service check the heart monitor around the time of episode to r/o symptomatic bradycardia or arrhythmia - please take blood pressure and pulse in both arms to see if there is any substantial difference - if above unremarkable, would recommend an EEG be performed on the AM of 06/09 Thank you for this interesting consult. Plan of care discussed with primary team. Please call or text with any questions. (3) CVA, old, disturbances of vision: (4) Carotid stenosis: (5) Esophageal cancer: History of Present Illness Attending Physician: Carmela Gonzalez MD History of Present Illness Yesenia Oscar is an 83 yo woman w/ PMH of esophageal cancer s/p chemo/radiation (last in 2011), HLD and hypothyroidism who p/t [facility] after a one week history of acute onset dizziness. 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 Dizziness is described as room spinning and lasts approximately 1 minute at a time. She went to an urgent care after the initial few episodes and was recommended to try meclizine which she reports has not been helpful. She continued to get dizziness intermittently throughout the last week which can be associated with head turning or position change, but can also occur when lying in bed resting, sitting and reading, or standing and walking around. Aside from the first episode, these other episodes of dizziness have not been a/w nausea/vomiting; she denies any falls and says that she sits and rests when these episodes happen. Denies any tinnitus, hearing or vision changes, numbness, tingling, ear pain, fevers, signs of ear infection, or weakness. Denies any cranial nerve symptoms. Denies h/o migraines or headaches in the past. No recent medication changes or prior similar episodes. In the ED, she was afebrile, with BP 195/88, HR 78, satting 98% on RA. Labs notable for WBC 5.66, Hb 15.4, Plts 199, Na 138, K 4.7, Cr 0.93, glucose 92, INR 1.0, LFTs WNL, troponin negative, LDL 59, UA no infection. CTH showed encephalomalacia in the right parieto-occipital lobe. 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 MRI brain showed chronic infarct in the right parieto-occipital lobe, moderate SVID, and generalized atrophy. EKG was notable for sinus bradycardia with RBBB. On examination today, she reports that for the most part, she is not experiencing dizziness but that this comes in episodes throughout the day without a clear trigger. Denies any associated chest pain, palpitations, tunnel vision. She was seen by PT earlier in the day who performed Stas and Laurel- Halpike with inconsistent symptoms and did not think presentation was c/w BPPV. Of note, no nystagmus on examination either. Allergies Allergy/AdvReac Type Severity Reaction Status Date / Time No Known Allergies Allergy Verified 06/08/19 14:02 Home Medications Home Medications Medication Instructions Recorded Confirmed Type aspirin [Aspirin Low Dose] 81 mg PO DAILY 06/08/19 06/08/19 History calcium carbonate [Calcium 600] 0 mg PO DAILY 06/08/19 06/08/19 History cholecalciferol (vitamin D3) 0 mcg PO DAILY 06/08/19 06/08/19 History [Vitamin D3] levothyroxine 25 mcg PO QAM 06/08/19 06/08/19 History meclizine 12.5 mg PO UD PRN 06/08/19 06/08/19 History multivitamin 1 tab PO DAILY 06/08/19 06/08/19 History ondansetron 4 mg PO UD PRN 06/08/19 06/08/19 History rosuvastatin 10 mg PO QPM 06/08/19 06/08/19 History Patient History Medical History Esophageal cancer High cholesterol Hypothyroid Surgical History H/O: hysterectomy History of bunionectomy Hx of cholecystectomy Social History Preferred Language: [place] Communication Ability: Effective 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 Exam (Neuro) Physical Exam: General Exam: GEN: NAD, sitting in bed. HEENT: No conjunctival injection, no rhinorrhea. CV: RRR, no peripheral edema PULM: Nonlabored respirations on room air. Neuro Exam: MS: Awake and Alert. Oriented to person, place, and date. Speech fluent and appropriate without dysarthria or paraphasic errors. Language intact including naming, comprehension, repetition. Cognition and memory grossly intact. Attention intact. No neglect. CN: Visual locke full. No extinction to double simultaneous stimuli. Unable to visualize optic disc on fundoscopic exam. PERRLA OU. EOMI without nystagmus. Facial sensation intact to LT. Facial muscles full and symmetric. Hearing intact to conversation. Uvula midline with symmetric palatal elevation. Shoulder shrug normal. Tongue midline. MOTOR: Normal bulk and tone. No pronator drift. BUE strength 5/5 at deltoids, biceps, triceps, wrist flexors and extensors, and hand grasp bilaterally. BLE strength 5/5 at iliopsoas, hamstrings, quadriceps, tibialis anterior, and gastrocnemius bilaterally. REFLEXES: 1+ at biceps, triceps, brachioradialis, trace patella and absent Achilles bilaterally. Flexor plantar responses bilaterally. SENSORY: Intact to LT/vibration/temperature without extinction to double simultaneous stimuli. Vibration and pinprick intact throughout. COORDINATION: No dysmetria or ataxia on [id number] and [id number] bilaterally. Normal Anabel bilaterally. GAIT: deferred given physical status/fall risk. Results & Data ([facility]) Vital Signs (Past 12 Hours) Vital Signs Temp Pulse Pulse Resp BP Pulse Ox 06/09/19 15:06 36.7 C 68 18 110/72 95 06/09/19 15:00 75 06/09/19 11:41 36.8 C 64 18 109/71 94 06/09/19 09:00 57 L 06/09/19 07:33 36.6 C 60 18 104/64 92 PG Care Time/CCT Total # of Minutes Spent Total Time Spent with Patient: Total time spent is greater than 50% in coordination of care (as documented) at patient's floor/unit and/or counseling patient: Coding Level of Care Code 63020 Initial Inpt Care Lvl 3 Diagnoses High cholesterol E78.00 Vertigo R42 CVA, old, disturbances of vision I69.398; H53.9 Carotid stenosis I65.29 Esophageal cancer C15.9
[2019-06-09] MEDS: ENOXAPARIN INJ 40 MG/0.4 ML SYR SQ SCH (18:47)
[2019-06-09] MEDS ORDERED: GADOBUTROL 30ML VIAL IV PRN (19:51)
--- NOTE | 2019-06-09 20:09 | Magnetic Resonance Report ---
MRI OF THE BRAIN COMBO CLINICAL HISTORY: Dizziness. COMPARISON STUDY: CT and MRI of the brain dated 06/08/2019. TECHNIQUE: MRI of the brain was performed utilizing various T1 and T2-weighted sequences in the axial , sagittal, and coronal planes. Contrast-enhanced sequences were acquired following the administratio n of 6.5 cc of Gadavist. FINDINGS: Brain parenchyma: Right occipital encephalomalacia is unchanged and consistent with a remote infarct. There is age-related involutional change noting mild subcortical and periventricular microangiopathi c disease. There is no hemorrhage or mass effect. There is no restricted diffusion to suggest acute i schemia. No abnormal enhancement or mass lesion is seen on the postcontrast images. Nguyen-white matter differentiation is preserved. No extra-axial fluid collection is seen. The cerebellar tonsils are no rmal in configuration. Ventricles, sulci, and cisterns: Prominent secondary to involutional change. Pituitary and sella: Partially empty sella is incidentally noted. Intracranial vasculature: Normal flow voids are maintained at the skull base. Orbits: The bony orbits are grossly intact. Orbital contents are normal in appearance noting bilatera l ocular lens implants. Sinuses and mastoids: Clear. Calvarium: Unremarkable. Cervical cord: Partially visualized cervical spinal cord is normal in morphology and signal intensity . IMPRESSION: No acute intracranial abnormality. ACT 112: Negative or not required by law. Electronically signed by: Asael Montgomery M.D. 06/09/2019 8:08 PM
[2019-06-09] MEDS: ROSUVASTATIN CALCIUM 10 MG TAB PO SCH (21:27)
[2019-06-10 05:55] LABS: Hematocrit (blood only) 40.6 % (37-47); Hemoglobin 13.5 g/dL (12.0-16.0); Mean Corpuscular Hemoglobin 32.5 pg (25-34); Mean Corpuscular Hgb Conc 33.3 g/dL (32-36); Mean Corpuscular Volume 97.6 fL (80-100); Platelet Count 185 K/uL (130-400); RDW Coefficient of Variation 14.3 % (11.5-14.5); RDW Standard Deviation 51.3 fL (36.4-46.3); Red Blood Count 4.16 M/uL (4.2-5.4); White Blood Count 6.15 K/uL (4.8-10.8)
[2019-06-10] MEDS: LEVOTHYROXINE SODIUM 25 MCG TABLET PO SCH (05:59)
[2019-06-10 06:28] LABS: Albumin Globulin Ratio 0.9 (0.9-2); BUN Creatinine Ratio 24.9 (10-20); Bilirubin,Total 0.5 mg/dl (0.2-1); Calcium 8.2 mg/dl (8.5-10.1); Creatinine Clr Calc Pharmacy 36.1 ml/min; Est GFR (African American) 59.3; Est GFR (Non-African American) 51.2; Globulin 3.5 gm/dl (2.5-4.0); Potassium 3.8 mmol/L (3.5-5.1); Total Protein 6.5 gm/dl (6.4-8.2)
[2019-06-10 06:36] LABS: Thyroid Stimulating Hormone 0.933 uIu/ml (0.300-4.500)
[2019-06-10] MEDS: MULTIVITAMIN TAB PO SCH (07:18)
[2019-06-10] MEDS: ASPIRIN 81 MG ECTAB PO SCH (07:18)
[2019-06-10] MEDS: CALCIUM CARBONATE 1250MG TAB PO SCH (07:18)
--- NOTE | 2019-06-10 11:39 | Neurology Progress Note ---
Date of Service June 10, 2019 Assessment & Plan (1) High cholesterol: (2) Vertigo: Yesenia Oscar is an 83 yo woman w/ PMH of esophageal cancer s/p chemo/radiation (last in 2011), HLD and hypothyroidism who p/t [facility] after a one week history of acute onset dizziness. # Dizzy episodes: there is no clear peripheral vestibular component on exam today by myself or PT to suggest BPPV or vestibular neuritis as cause of dizziness. She does not have a h/o migraines to suggest vestibular migraine. No arrhythmia noted during several episodes that occurred while in the hospital. No signs of tumor leptomeningeal carcinomatosis on repeat MRI with contrast. Ddx at this time includes vertebrobasilar TIAs from stenosis of R vert at the origin, less likely seizure or panic attack. - would recommend an EEG be performed today and if normal, would be stable for discharge from a neurological standpoint but should follow-up with ENT to rule out any hearing loss that could be contributing to symptoms -Given that we cannot rule out that these are TIAs, recommend that she continue aspirin 81 mg daily and rosuvastatin 10 mg nightly (she is already at goal for LDL so no need to change to atorvastatin). Blood pressure and A1c are also already at goal. Thank you for this interesting consult. Plan of care discussed with primary team. Please call or text with any questions. (3) CVA, old, disturbances of vision: (4) Carotid stenosis: (5) Esophageal cancer: Admission and Anticipated Discharge Date Admission Date: June 09, 2019 Subjective NAEs overnight. Had several episodes of vertigo with no sign of arrhythmia on heart monitor. Had MRI brain with contrast performed which was independently reviewed; no signs of leptomeningeal carcinomatosis or enhancing tumor. She reports that she has been having at least one episode of vertigo per hour since yesterday evening. She has not taken any meclizine at this time. She had one episode while I was talking with her this morning where she was able to still talk and follow commands. No nystagmus or eye deviation was noted, eyes were midline and able to move side to side on command. There were no automatisms were sensory/motor symptoms noted with the episode. Entire episode lasted around 30 seconds is at normal baseline mental status throughout episode and afterwards. Review of Systems Review of Systems: 14 point review of systems completed and negative except as in HPI. Results & Data ([facility]) Vital Signs (Past 12 Hours) Vital Signs Temp Pulse Pulse Resp BP BP Pulse Ox 06/10/19 10:47 36.4 C L 62 18 116/75 115/74 94 06/10/19 07:07 36.3 C L 101/63 113/71 95 06/10/19 06:54 36.3 C L 56 L 20 93/52 L 112/64 92 06/10/19 04:00 36.7 C 67 20 114/73 129/85 96 06/10/19 03:47 86 Exam (Neuro) Physical Exam: General Exam: GEN: NAD, sitting in bed. HEENT: No conjunctival injection, no rhinorrhea. CV: RRR, no peripheral edema PULM: Nonlabored respirations on room air. Neuro Exam: MS: Awake and Alert. Oriented to person, place, and date. Speech fluent and appropriate without dysarthria or paraphasic errors. Language intact including naming, comprehension, repetition. Cognition and memory grossly intact. Attention intact. No neglect. CN: Visual locke full. No extinction to double simultaneous stimuli. Unable to visualize optic disc on fundoscopic exam. PERRLA OU. EOMI without nystagmus. Facial sensation intact to LT. Facial muscles full and symmetric. Hearing intact to conversation. Uvula midline with symmetric palatal elevation. Shoulder shrug normal. Tongue midline. MOTOR: Normal bulk and tone. No pronator drift. BUE strength 5/5 at deltoids, biceps, triceps, wrist flexors and extensors, and hand grasp bilaterally. BLE strength 5/5 at iliopsoas, hamstrings, quadriceps, tibialis anterior, and gastrocnemius bilaterally. REFLEXES: 1+ at biceps, triceps, brachioradialis, trace patella and absent Achilles bilaterally. Flexor plantar responses bilaterally. SENSORY: Intact to LT/vibration/temperature without extinction to double simultaneous stimuli. Vibration and pinprick intact throughout. COORDINATION: No dysmetria or ataxia on [id number] and [id number] bilaterally. Normal Anabel bilaterally. GAIT: deferred given physical status/fall risk. PG Care Time/CCT Total # of Minutes Spent Total Time Spent with Patient: Total time spent is greater than 50% in coordination of care (as documented) at patient's floor/unit and/or counseling patient: Coding Level of Care Code 05489 Subseq Hosp Care Lvl 3 Diagnoses High cholesterol E78.00 Vertigo R42 CVA, old, disturbances of vision I69.398; H53.9 Carotid stenosis I65.29 Esophageal cancer C15.9
--- NOTE | 2019-06-10 12:50 | Electrocardiogram Report ---
Test Reason : Blood Pressure : / mmHG Vent. Rate : 059 BPM Atrial Rate : 059 BPM P-R Int : 192 ms QRS Dur : 142 ms QT Int : 454 ms P-R-T Axes : 065 008 032 degrees QTc Int : 449 ms Sinus bradycardia Right bundle branch block Abnormal ECG When compared with ECG of 08-JUN-2019 11:43, ST elevation has replaced ST depression in Lateral leads Confirmed by Antonio Salazar ([id number]) on 06/10/2019 12:49:54 PM Referred By: REFERRED SELF Confirmed By:Antonio Salazar
--- NOTE | 2019-06-10 16:49 | Electroencephalogram ---
EEG Procedure Note Date of Service June 10, 2019 Start / End Times Start Time: 2:47pm End Time: 3:40pm Referring Physician Carmela Gonzalez History transient episodic dizziness Home Medication List Home Medications Medication Instructions Recorded Confirmed Type aspirin [Aspirin Low Dose] 81 mg PO DAILY 06/08/19 06/08/19 History calcium carbonate [Calcium 600] 0 mg PO DAILY 06/08/19 06/08/19 History cholecalciferol (vitamin D3) 0 mcg PO DAILY 06/08/19 06/08/19 History [Vitamin D3] levothyroxine 25 mcg PO QAM 06/08/19 06/08/19 History meclizine 12.5 mg PO UD PRN 06/08/19 06/08/19 History multivitamin 1 tab PO DAILY 06/08/19 06/08/19 History ondansetron 4 mg PO UD PRN 06/08/19 06/08/19 History rosuvastatin 10 mg PO QPM 06/08/19 06/08/19 History Inpatient Medication List Aspirin (Ecotrin Ectab) 81 mg PO DAILY [facility] Stop: 07/09/19 08:59 Last Admin: 06/10/19 07:18 Dose: 81 mg Documented by: [id number] Admin: 06/09/19 09:16 Dose: 81 mg Documented by: [id number] Calcium Carbonate (Os-Bruce 500) 1,250 mg PO DAILY [facility]; Protocol Stop: 07/09/19 08:59 Last Admin: 06/10/19 07:18 Dose: 1,250 mg Documented by: [id number] Admin: 06/09/19 09:16 Dose: 1,250 mg Documented by: [id number] Enoxaparin Sodium (Lovenox) 40 mg SQ Q24H [facility] Stop: 07/08/19 17:59 Last Admin: 06/09/19 18:47 Dose: 40 mg Documented by: [id number] Admin: 06/08/19 20:00 Dose: 40 mg Documented by: [id number] Gadobutrol (Gadavist 30ml) 6.5 ml IV ONCE PRN PRN Reason: Interaction Checking Stop: 06/13/19 19:50 Last Admin: 06/09/19 19:52 Dose: 6.5 ml Documented by: [id number] Ioversol (Optiray 320 125ml) 119 ml IV ONCE PRN PRN Reason: Interaction Checking Stop: 06/12/19 12:25 Last Admin: 06/08/19 12:26 Dose: 119 ml Documented by: [id number] Levothyroxine Sodium (Synthroid) 25 mcg PO DAILYBB [facility] Stop: 07/09/19 06:29 Last Admin: 06/10/19 05:59 Dose: 25 mcg Documented by: [id number] Admin: 06/09/19 05:55 Dose: 25 mcg Documented by: [id number] Multivitamins (Multivitamin Tab) 1 tab PO DAILY [facility] Stop: 07/09/19 08:59 Last Admin: 06/10/19 07:18 Dose: 1 tab Documented by: [id number] Admin: 06/09/19 09:16 Dose: 1 tab Documented by: [id number] Rosuvastatin Calcium (Crestor) 10 mg PO QPM [facility] Stop: 07/08/19 20:59 Last Admin: 06/09/19 21:27 Dose: 10 mg Documented by: [id number] Admin: 06/08/19 20:00 Dose: 10 mg Documented by: [id number] Discontinued Medications Labetalol HCl (Normodyne) 10 mg IV NOW STA Stop: 06/08/19 14:13 Last Admin: 06/08/19 14:39 Dose: Not Given Documented by: [id number] Meclizine HCl (Antivert) 25 mg PO NOW STA Stop: 06/08/19 13:20 Last Admin: 06/08/19 14:34 Dose: 25 mg Documented by: [id number] Meclizine HCl (Antivert) 12.5 mg PO TID [facility] Stop: 07/08/19 20:59 Last Admin: 06/09/19 13:32 Dose: 12.5 mg Documented by: [id number] Admin: 06/09/19 09:17 Dose: 12.5 mg Documented by: [id number] Admin: 06/08/19 20:00 Dose: 12.5 mg Documented by: [id number] Description This is a 21 electrode EEG with a single channel dedicated to limited EKG. The electrodes were placed in accordance with the International 10-20 system. History: transient episodic dizziness Rx: none Start/Stop: 2:47p-3:40pm Attending reading: Jada Del Castillo EEG Description: EEG background: Background was low voltage with mixed alpha rhythm with overriding theta. A well formed 8-9 Hz posterior dominant rhythm was observed. The EEG is continuous. There is variability and reactivity present. Activation and reactivity: Photic stimulation performed without any abnormalities noted. No photic driving observed. Hyperventilation was not performed. Sleep: Patient was drowsy and briefly entered higher levels of sleep. Stages I and II of sleep were recorded with normal vertex waves and sleep spindles noted. Epileptiform discharges: No epileptiform discharges were observed. Rhythmic and periodic patterns: None Seizures: None Impression: This was a normal awake and asleep EEG. No seizures or epileptiform discharges were seen. No clinical events of dizziness captured. Clinical correlation required. [facility] EEG Procedure Codes Indication for Procedure (1) Vertigo: (2) CVA, old, disturbances of vision: Neurology Neurology: [id number] EEG extend monitoring 41-60min
--- NOTE | 2019-06-10 18:32 | Hospitalist Progress Note ---
Date of Service June 10, 2019 Assessment & Plan (1) Vertigo: - Vertigo persists--> Neuro does not think this is secondary to BPPV or vestibular neuronitis. 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 BPs and HR equal in both arms No hearing loss or tinnitus Possibility of vertebrobasilar insufficiency and TIAs as per Neuro--> continue ASA, statin, BP control, but there would be no intervention surgically to be done for this -dc meclizine as not helping and making her tired -PT/OT--> pt plans on going home with family -continued stay -follow on tele and f/u ECHO -needs outpt Neuro and ENT f/u after discharge -check Lyme, ESR, CRP, BMP in AM (2) CVA, old, disturbances of vision: -Patient with evidence of an old CVA on CT scan in right occipital lobe. MRI as noted above. -Patient is on low-dose aspirin. -Lipid panel completed and is good, continue statin as per [facility]ER meds - pt admits to taking this every other day, can continue this but recommended that she not discontinue the medication in the instance of having a previous stroke. (3) High cholesterol: -Rosuvastatin 10 mg daily (pt taking every other day at home for several months prior to this admit) (4) Hypothyroid: -Levothyroxine 25 mcg daily -TSH here is normal (5) Vertebral artery stenosis: Right mod stenosis at origin -continue ASA, statin (6) Carotid stenosis: -Patient with carotid stenosis on the left of around 50%. -Continue low-dose aspirin. -Rosuvastatin as above monitor as outpt (7) RBBB: noted on ECG with likely repol changes and not ST elevation in lateral leads Trop negative No chest pain at all Check ECHO (8) DVT prophylaxis: - Lali watson subcu CODE STATUS full code Disposition: Patient from home, living with daughter locally, typically lives on her own independently, likely discharge tomorrow Admission and Anticipated Discharge Date Admission Date: June 09, 2019 Anticipated date of discharge: 06/11/19 Subjective I saw the patient shortly before lunchtime today and she had already recorded at least 5-6 episodes of her dizzy spells in a log. Each one came on whether lying in bed or sitting in a chair, felt like things were spinning or going side to side, and lasted under 30 seconds each. She continues to feel very fatigued but does feel better now off the ,meclizine. She denies any further nausea or dry heaves and is lory po. When she has these dizzy episodes, she feels her body can't function, but no trouble with speech, no abnormal movements of her limbs, and no headache. Denies numbness/tingling anywhere. No arrhythmias noted on tele with episodes or at all. She had an episode while I was with her that lasted approx 20 sec. She was able to follow commands, talk to me, and there were no abnormal movements. Her eyes seem to have slight nystagmus during the episode. EEG performed and unfortunately she did not have an episode for the 1 hour she was on the EEG. I discussed her case with the Neurologist. Pt continued to have approximately multiple more episodes throughout the day and evening and we decided to keep her overnight for further observation and also need to await ECHO interpretation. ECG this AM was read as ST elevation in lateral leads, however on my review does not look much different from previous and she has a RBBB and could have repolarization with that. Repeat ECG about the same except no further TWI in lead V2. Troponin was negative and she never had any chest pain or SOB. Review of Systems Review of Systems: All systems reviewed & are unremarkable except as noted in HPI & below Physical Exam Constitutional: WD/WN, vitals as above Eyes: PERRL, conjunctivae normal, anicteric sclerae EOM intact bilaterally and + nystagmus (mild, during episode of dizziness) ENMT: external ear and nose normal, oropharynx normal Neck: trachea midline, no thyromegaly Respiratory: normal respiratory effort, lungs clear to auscultation Cardiovascular: RRR, no murmur, no edema Chest (Breasts): Chest: normal inspection of chest Gastrointestinal (Abdomen): normal bowel sounds, soft, nontender, no hepatosplenomegaly Musculoskeletal: Extremities: extremities normal to inspection; no cyanosis and no clubbing Skin: no rashes, warm and dry Neurologic: PERRL, EOMI, accommodation nl, no face palsy, no dysarthria CN's II-XI intact bilaterally, moves all extremities and awake; no focal motor deficits Speech / Cognition: normal speech and normal cognition Motor/Sensory: no sensory deficit Psychiatric: A+Ox3, euthymic affect Lymphatic: no lymphedema Results & Data Results & Data ([facility]) Vital Signs (Past 12 Hours) Vital Signs Temp Pulse Pulse Resp BP BP Pulse Ox 06/10/19 16:23 64 06/10/19 10:47 36.4 C L 62 18 116/75 115/74 94 06/10/19 07:07 36.3 C L 101/63 113/71 95 06/10/19 06:54 36.3 C L 56 L 20 93/52 L 112/64 92 Laboratory Results 06/10/19 06/10/19 06/10/19 Range/Units 18:24 05:26 05:26 WBC 6.15 (4.8-10.8) K/uL RBC 4.16 L (4.2-5.4) M/uL Hgb 13.5 (12.0-16.0) g/dL Hct 40.6 (37-47) % MCV 97.6 (80-100) fL MCH 32.5 (25-34) pg MCHC 33.3 (32-36) g/dL RDW Std Deviation 51.3 H (36.4-46.3) fL RDW Coeff of Eros 14.3 (11.5-14.5) % Plt Count 185 (130-400) K/uL MPV 10.0 (7.4-10.4) fL Sodium 139 (136-145) mmol/L Potassium 3.8 (3.5-5.1) mmol/L Chloride 107 (98-107) mmol/L Carbon Dioxide 29 (21-32) mmol/L Anion Gap 3.0 (3-11) BUN 25 H (7-18) mg/dl Creatinine 1.02 (0.6-1.2) mg/dl Est Cr Clr Drug Dosing 36.1 ml/min Est GFR ( Amer) 59.3 Est GFR (Non-Af Amer) 51.2 BUN/Creatinine Ratio 24.9 H (10-20) Glucose 93 (70-99) mg/dl Calcium 8.2 L (8.5-10.1) mg/dl Total Bilirubin 0.5 (0.2-1) mg/dl AST 18 (15-37) U/L ALT 22 (12-78) U/L Alkaline Phosphatase 73 (45-117) U/L Troponin I < 0.015 (0-0.045) ng/ml Total Protein 6.5 (6.4-8.2) gm/dl Albumin 3.0 L (3.4-5.0) gm/dl Globulin 3.5 (2.5-4.0) gm/dl Albumin/Globulin Ratio 0.9 (0.9-2) TSH 0.933 (0.300-4.500) uIu/ml PG Care Time/CCT Total # of Minutes Spent Total Time Spent with Patient: Total time spent is greater than 50% in coordination of care (as documented) at patient's floor/unit and/or counseling patient: Coding Level of Care Code 14628 Subseq Hosp Care Lvl 3 Diagnoses Vertigo R42 CVA, old, disturbances of vision I69.398; H53.9 High cholesterol E78.00 Hypothyroid E03.9 Vertebral artery stenosis I65.09 Carotid stenosis I65.29 RBBB I45.10 DVT prophylaxis Z29.9
[2019-06-10] MEDS: ENOXAPARIN INJ 40 MG/0.4 ML SYR SQ SCH (19:30)
[2019-06-10] MEDS: ROSUVASTATIN CALCIUM 10 MG TAB PO SCH (20:47)
[2019-06-11] MEDS: LEVOTHYROXINE SODIUM 25 MCG TABLET PO SCH (05:46)
[2019-06-11 07:19] LABS: BUN Creatinine Ratio 24.5 (10-20); Blood Urea Nitrogen 21 mg/dl (7-18); C Reactive Protein < 0.29 mg/dl (0-0.29); Calcium 8.5 mg/dl (8.5-10.1); Carbon Dioxide 27 mmol/L (21-32); Chloride 107 mmol/L (98-107); Creatinine Clr Calc Pharmacy 43.1 ml/min; Est GFR (African American) 72.9; Est GFR (Non-African American) 62.9; Glucose 95 mg/dl (70-99); Potassium 3.8 mmol/L (3.5-5.1); Sodium 139 mmol/L (136-145)
[2019-06-11] MEDS: ASPIRIN 81 MG ECTAB PO SCH (07:34)
[2019-06-11] MEDS: CALCIUM CARBONATE 1250MG TAB PO SCH (07:34)
[2019-06-11] MEDS: MULTIVITAMIN TAB PO SCH (07:35)
[2019-06-11 07:37] VITALS: BP 151/78; PULSE 68; TEMP 98.2; O2SAT 96
[2019-06-11 07:41] LABS: Lyme Ab IgG w/WB Rflx Negative (Negative); Lyme Ab IgM w/WB Rflx Negative (Negative)
--- NOTE | 2019-06-11 09:20 | XCELERA ---
[id number] [id number]
--- NOTE | 2019-06-11 10:33 | Electrocardiogram Report ---
Test Reason : Blood Pressure : / mmHG Vent. Rate : 066 BPM Atrial Rate : 066 BPM P-R Int : 188 ms QRS Dur : 144 ms QT Int : 418 ms P-R-T Axes : 068 -16 035 degrees QTc Int : 438 ms Normal sinus rhythm Right bundle branch block Abnormal ECG When compared with ECG of 10-JUN-2019 06:27, No significant change was found Confirmed by Antonio Salazar ([id number]) on 06/11/2019 10:33:00 AM Referred By: REFERRED SELF Confirmed By:Antonio Salazar
--- NOTE | 2019-06-11 11:57 | Discharge Summary ---
Date of Service June 11, 2019 Admission HPI Per Admitting Provider This is a very pleasant 83-year-old female with past medical history of esophageal cancer, hypercholesterolemia, and hypothyroidism that presents with complaints of acute vertigo. Patient is a good historian although somewhat limited on past medical history. Patient tells me that approximately 1 week ago she started to experience symptoms of vertigo. This was very sudden onset, occurring in the late morning on . She states that there is a waxing and waning character to it although in the past 2-3 days it is become much worse. She denies any headaches with this but she does have ataxia when it is severe. She tells me is worse with any movement of the head including lying flat. She denies any problems with her hearing or tinnitus. She denies any headache or other neurological symptoms. At the time my evaluation the patient tells me that she is not having any symptoms but feel that she would if she sat backwards. 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 This has been accompanied with a headache but the patient did not seek medical attention at that time. This is relevant as the patient was found to have a previous small occipital CVA on initial CT. she did also note a previous 99% stenosis of a carotid, she cannot recall which side. She was previously evaluated [facility] for this. Although typically there is no intervention for complete carotid blockage, I did describe CEA and she does recall having this in the past but again cannot recall which side. Principal Diagnosis Dizziness Discharge Exam Constitutional WD/WN, vitals as above Eyes PERRL, conjunctivae normal, anicteric sclerae ENMT external ear and nose normal, oropharynx normal Neck trachea midline, no thyromegaly Respiratory normal respiratory effort, lungs clear to auscultation Cardiovascular RRR, no murmur, no edema Chest (Breasts) Chest: normal inspection of chest Gastrointestinal (Abdomen) normal bowel sounds, soft, nontender, no hepatosplenomegaly Musculoskeletal Extremities: extremities normal to inspection; no cyanosis and no clubbing Skin no rashes, warm and dry Neurologic PERRL, EOMI, accommodation nl, no face palsy, no dysarthria CN's II-XI intact bilaterally, moves all extremities and awake; no focal motor deficits Speech / Cognition: normal speech and normal cognition Motor/Sensory: no sensory deficit Psychiatric A+Ox3, euthymic affect Lymphatic no lymphedema Discharge Data Allergies Allergy/AdvReac Type Severity Reaction Status Date / Time No Known Allergies Allergy Verified 06/08/19 14:02 Consultations 06/08/19 14:12 ED Decision to Admit Stat 06/08/19 17:11 Consult Neurology Routine Ordered Studies 06/08/19 11:33 CT angio head w con Stat CT angio neck with con Stat CT head/brain wo con Stat 06/08/19 17:11 MR brain wo con Routine 06/09/19 17:17 MR brain wo/w con Stat ECHO CXR Hospital Course (1) Vertigo: - Vertigo persists--> Neuro does not think this is secondary to BPPV or vestibular neuronitis. 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, mod SVID CTA Head and neck with left ICA 50% stenosis, Right vertebral artery origin mod stenosis as per Neuro but read as normal by Radiology MRI Brain WITH contrast done and no evidence of tumors or leptomeningeal masses (with concern for h/o esophageal CA) ECG with RBBB, no ischemic changes as per my d/w reading [employer] (no true ST elevation from ischemia, but w/ repol changes) Troponin negative EEG negative but did NOT have an episode while on EEG ECHO mild LVH, preserved EF, aortic sclerosis but no stenosis Tele-sinus bradycardia, no other issues -Otoscopic exam completed and is normal BPs and HR equal in both arms No hearing loss or tinnitus reported Possibility of vertebrobasilar insufficiency and TIAs as per Neuro, but suspect still some inner ear issue --> continue ASA, statin, BP control, but there would be no intervention surgically to be done for the vertebral artery stenosis at this time as per Neuro discussion -dcd meclizine as not helping and making her tired -PT/OT--> pt plans on going home with family -needs outpt Neuro and ENT f/u after discharge with vestibular testing-to be arranged with ENT through Nurse Navigator -checked Lyme, ESR, CRP--> all acceptable/normal Stable for dc to home--> continued to have episodes very short-lived--> she will have her daughter with her 07/09 and will not ambulate unassisted (2) CVA, old, disturbances of vision: -Patient with evidence of an old CVA on CT scan and MRI brain in right occipital lobe. She was unaware of this -Patient is on low-dose aspirin. -Lipid panel completed and is good, continue statin as before (3) High cholesterol: -continue Rosuvastatin 10 mg daily-she confirms she was indeed taking this daily for years (4) Hypothyroid: -Levothyroxine 25 mcg daily -TSH here is normal (5) Vertebral artery stenosis: Right mod stenosis at origin -continue ASA, statin (6) Carotid stenosis: -Patient with carotid stenosis on the left of around 50%. -Continue low-dose aspirin. -Rosuvastatin as above monitor as outpt (7) RBBB: noted on ECG with repol changes and not ST elevation in lateral leads Trop negative No chest pain at all ECHO with mild LVH, preserved LVEF (8) DVT prophylaxis: - Lali watson subcu CODE STATUS full code Disposition: Patient from home, living with daughter locally during COVID 19, typically lives on her own independently, dc to home with daughter with assistance Total Time Total Time Spent Total Time Spent (In Minutes): 45 min Total Time Includes: Examination of the Patient, Discharge Planning, Medication Reconciliation and Communication With Other Providers (Neurology, Cardiology) Discharge Plan Discharge Items Patient Disposition: Home - Self-Care Reason For Visit: VERTIGO/ATAXIA Discharge Diagnosis: Dizziness Condition on Discharge: Fair Activity: As commented below Lifting: Gradually increase as tolerated Bathing: No limitations Bathing Comment: with assistance in shower Exercise/Sports: Gradually increase as tolerated Exercise Comment: walk with assistance in case of dizzy episode Driving/Machine Use: No driving Weightbearing: Full weightbearing Non-emergency contact: Primary Care Provider and Neurologist Call non-emergency contact if: you have any medication questions and your symptoms worsen Follow-up/Referrals: Sebastien Gibbons MD [Physician] - (Our Nurse Navigator will be arranging a follow up appointment with ENT Dr. Gibbons. They will review your case and determine if you need to be seen in the office versus a Tele Health visit. ) Jada Del Castillo MD [Physician] - (Please call Dr. Del Castillo's office to arrange a Tele-Health visit for follow up.) Laura Thomas NP [Primary Care Provider] - (Please call you primary care doctor and see if you need to make a follow up appointment.) Diet: Heart Healthy Addtl Attending Provider Instructions: You were admitted for dizziness and had a workup for stroke and other causes of dizziness. You did not have a new stroke, but had evidence of an old stroke. It is important to continue to take the aspirin and Crestor as you were before to prevent future strokes. You had brain MRIs that ruled out a brain tumor. You do not have an aneurysm in the brain. You had an EEG which did not show any seizure activity, however you did not have a dizzy episode while on the EEG. This does not completely rule out a seizure disorder. Your cardiac workup was normal. You also had a negative Lyme disease test. The next step will be to follow up with the ENT doctor and a possible referral for vestibular testing. You should also follow up with the Neurologist, Dr. Del Castillo. Please have someone with you at all times when you are walking around to make sure you have assistance in case of dizziness. Pending Studies at Discharge: No Stand-Alone Forms: My [facility] Medications and DC Order Prescriptions: Continued multivitamin Tablet 1 tab PO DAILY RF: 0 aspirin [Aspirin Low Dose] 81 mg Tablet,Delayed Release (Dr/Ec) 81 mg PO DAILY RF: 0 levothyroxine 25 mcg tablet 25 mcg PO QAM RF: 0 calcium carbonate [Calcium 600] 600 mg calcium (1,500 mg) Tablet 0 mg PO DAILY RF: 0 cholecalciferol (vitamin D3) [Vitamin D3] 25 mcg (1,000 unit) Capsule 0 mcg PO DAILY RF: 0 rosuvastatin 10 mg tablet 10 mg PO QPM RF: 0 Discontinued meclizine 12.5 mg tablet 12.5 mg PO UD PRN (Reason: Dizziness) RF: 0 ondansetron 4 mg tablet,disintegrating 4 mg PO UD PRN (Reason: Nausea) RF: 0 Discharge Orders: Discharge Order (Routine); Ordered 06/11/19 Ordered By: Carmela Gonzalez Admission Data Admit Date/Time: 06/09/19 15:35 Attending Provider: Carmela Gonzalez Admit Provider: Italo Mccollum Primary Care Provider: Laura Thomas Other Providers: Italo Mccollum ; Dwight Gomez Other Interventions: Discharge Summary Assessment (RN) Last Done: 06/11/19 12:03 DC Date/Time DO NOT enter until pt leaves facility: 06/11/19 13:55 Coding Level of Care Code D/C Day Management >30 mins Diagnoses Vertigo R42 CVA, old, disturbances of vision I69.398; H53.9 High cholesterol E78.00 Hypothyroid E03.9 Vertebral artery stenosis I65.09 Carotid stenosis I65.29 RBBB I45.10 DVT prophylaxis Z29.9
== END 2019-06-11 13:55 | disposition home or self-care (01) | DRG 149 ==
LOC: 2W 10:52 → ED 10:52 → SUATTDRO 16:11 → 2W 16:44

== ENCOUNTER 2022-03-31 06:30 | Observation (INO) ==
--- NOTE | 2022-03-04 10:08 | PAT Medication Instructions ---
Medication Instructions Date of Service March 04, 2022 Home Medications aspirin 81 mg tablet,delayed release (Kalyan Low Dose Aspirin) 81 mg PO QAM calcium carbonate 600 mg calcium (1,500 mg) tablet (Calcium) 1,200 mg PO QPM cholecalciferol (vitamin D3) 25 mcg (1,000 unit) capsule (Vitamin D3) 25 mcg PO QPM levothyroxine 25 mcg tablet 25 mcg PO QAM rosuvastatin 10 mg tablet 10 mg PO QPM cholestyramine (with sugar) 4 gram powder for susp in a packet 4 g PO BID PRN Diarrhea cilostazol 100 mg tablet 100 mg PO BID nitroglycerin 0.4 mg sublingual tablet 0.4 mg sublingual UD PRN esophageal spasms Continue as directed nitroglycerin 0.4 mg sublingual tablet 0.4 mg sublingual UD PRN esophageal spasms (if needed) ASK your prescriber and surgeon cilostazol 100 mg tablet 100 mg PO BID (in order for spinal anesthesia, cilostazol needs to be stopped 4 days before surgery. Please check if okay with doctor that prescribes this to you) STOP taking 48 hours before surgery cholestyramine (with sugar) 4 gram powder for susp in a packet 4 g PO BID PRN Diarrhea Take morning of surgery With a small sip of water, OTHERWISE NOTHING TO EAT OR DRINK AFTER MIDNIGHT: aspirin 81 mg tablet,delayed release (Kalyan Low Dose Aspirin) 81 mg PO QAM (continue as normal unless told otherwise by surgeon) levothyroxine 25 mcg tablet 25 mcg PO QAM Take evening before surgery calcium carbonate 600 mg calcium (1,500 mg) tablet (Calcium) 1,200 mg PO QPM cholecalciferol (vitamin D3) 25 mcg (1,000 unit) capsule (Vitamin D3) 25 mcg PO QPM rosuvastatin 10 mg tablet 10 mg PO QPM Other Notes If you have any questions please call us at [phone] or [phone] or [phone] or [phone]
--- NOTE | 2022-03-09 14:30 | Anesthesiology Consultation ---
Date of Service March 09, 2022 Assessment & Plan (1) Encounter for pre-operative examination: - COVID screening: Per assessment on 03/09: No known COVID-19 positive contacts or current COVID-19 related symptoms. Travel screen negative. Patient vaccinated. At surgeon discretion if preop Covid testing being done. - Outpatient joint assessment: Pt currently scheduled for inpatient pathway. If surgeon requests review for outpatient joint pathway, patient is not recommended candidate for outpatient joint program from anesthesia standpoint. - Hx carotid stenosis s/p CEA + RBBB: Per pt, PCP recommended updating carotid imaging and obtaining stress test but patient has not been back to the PCP ([facility]/Dr. Dre Au, P: [phone]) and is staying in the local region with her family until surgery. PCP arranged for carotid imaging and stress test be performed (scheduled 03/25; [facility]). Chart Review Chart Review: Patient seen in Pre Admission Testing Teaching & Discussion Pre-Anesthesia Teaching/Discussion Notes: Instructed NPO after midnight before surgery,except medications with 15 cc of water. Medication instructions provided according to the PAT guidelines. History Surgery Operation Date: 03/31/22 09:05 Proposed Procedures p Right Total Knee Arthroplasty - Dwight Allen, Height/Weight Height: 4 ft 11 in Weight: 68.3 kg Allergies Allergy/AdvReac Type Severity Reaction Status Date / Time No Known Drug Allergies Allergy Verified 03/03/22 12:25 Medications Home Medications Medication Instructions Recorded Confirmed Last Taken aspirin 81 mg tablet,delayed 81 mg PO QAM 06/08/19 03/03/22 Unknown release (Kalyan Low Dose Aspirin) calcium carbonate 600 mg calcium 1,200 mg PO QPM 06/08/19 03/03/22 Unknown (1,500 mg) tablet (Calcium) cholecalciferol (vitamin D3) 25 25 mcg PO QPM 06/08/19 03/03/22 Unknown mcg (1,000 unit) capsule (Vitamin D3) levothyroxine 25 mcg tablet 25 mcg PO QAM 06/08/19 03/03/22 Unknown rosuvastatin 10 mg tablet 10 mg PO QPM 06/08/19 03/03/22 Unknown cholestyramine (with sugar) 4 gram 4 g PO BID PRN Diarrhea 03/03/22 03/03/22 Unknown powder for susp in a packet cilostazol 100 mg tablet 100 mg PO BID 03/03/22 03/03/22 Unknown nitroglycerin 0.4 mg sublingual 0.4 mg sublingual UD PRN 03/03/22 03/03/22 Unknown tablet esophageal spasms Past Medical History Medical History Carotid stenosis pt reports she was to have a carotid ultrasound of her carotids in 11/2021, d/t the fall in the 11/2021 patient has been staying with her daughter in [place] and has not returned home (STALIN Barrera) and has not had the carotid ultrasounds done s/p unilateral CEA (10+ years ago)- pt unsure which side. 50% stenosis left carotid bifurcation and proximal left internal carotid artery. No evidence for high-grade or significant stenotic process per 06/08/19 CTA neck CVA (cerebral vascular accident) Incidental finding of old right occipital infarct on 2019 CT Diverticular disease Esophageal cancer Dx 2011 s/p esophagectomy (2012) History of TIA (transient ischemic attack) 10+ years ago Hyperlipidemia Hypothyroid PAD (peripheral artery disease) right leg RBBB pt reports was to have stress test done, not yet completed d/t other health concerns Spinal stenosis Vertebral artery stenosis Vertigo Exercise / Class Metabolic Activity III < 4 Walking/Shop/Light housework Past Family History Family History Other Cancer Heart disease No family history of adverse response to anesthesia No family history of bleeding disorder Past Surgical History Surgical History Amputation toe Left Hammer Toe H/O: hysterectomy 1986 partial hysterectomy History of anesthesia reaction Slow to wake after carotid endarterectomy History of bowel resection d/t adhesions 2013 History of bunionectomy History of carotid endarterectomy at [facility] (10+ years ago) unilateral -- unsure of side History of colonoscopy History of esophagectomy 2012 at [facility] in [place], [place] History of esophagogastroduodenoscopy (EGD) Hx of cholecystectomy 2013 during the bowel resection Past Anesthesia History Other ("Slow to wake" after carotid endarterectomy) History of PONV No Hx of PONV and No Hx of Motion Sickness Social History Smoking Status: Former smoker tobacco type: cigarettes Do You Dip or Chew Tobacco: No Smoking End Date: Quit 2002 Hx Alcohol Use: Yes Alcohol type: wine alcohol intake frequency: holidays/special occasions only Hx Substance Use: No substance use type: does not use Review of Systems Patient denies chest pain, shortness of breath, fever, chills, cough, wheezing, palpitations. Physical Exam Vital Signs VITALS BP 123/73 P 83 TEMP 98.0 SP02 97%%RA RESP 18 PHYSICAL Full cervical extension range of motion. Full TMJ range of motion. TMD 3 finger breaths Mallampati Score 3 Dentition: intact Lungs: clear throughout to auscultation Cardiac: regular rate and rhythm, no murmurs noted Spine: normal Carotid arteries: negative bruit Extremities: no edema Lab Results Anesthesia Preop Results Results Anesthesia Widget: WBC 6.66 K/ul (4.8-10.8) 03/09/22 Hgb 13.1 g/dl (12.0-16.0) 03/09/22 Hct 39.3 % (34.1-44.9) 03/09/22 Plt 218 K/uL (130-400) 03/09/22 Na 140 mmol/L (136-145) 03/09/22 K 4.2 mmol/L (3.5-5.1) 03/09/22 Cl 107 mmol/L (98-107) 03/09/22 CO2 27 mmol/L (21-32) 03/09/22 BUN 14 mg/dl (6-23) 03/09/22 Creat 0.95 mg/dl (0.6-1.2) 03/09/22 Glucose Level 97 mg/dl (70-99(Fasting)) 03/09/22 PT 10.6 Seconds (9.0-12.0) 03/09/22 PTT 29.8 Seconds (21.0-31.0) 03/09/22 INR 1.0 (0.9-1.1) 03/09/22 Blood Type O Positive 03/09/22 Antibody Screen NEGATIVE 03/09/22 Testing Electrocardiogram Date: 12/01/21 Sinus rhythm with frequent PACs at 66 bpm. RBBB. Echocardiogram Date: 06/11/19 EF 65 to 70%. No regional motion abnormality. Mild concentric LVH. No significant valvular disease. Other Testing Neck CTA (06/08/19) 50% stenosis left carotid bifurcation and proximal left internal carotid artery. No evidence for high-grade or significant stenotic process. Chest CT (12/01/21) No acute posttraumatic intrathoracic abnormality is identified. There is no airspace consolidation, pleural effusion, or pneumothorax. There is no evidence of solid organ injury in the abdomen or pelvis. There is postoperative change from esophageal resection and gastric pull-through procedure. Colonic diverticulosis without CT evidence of acute diverticulitis. Cardiomegaly. COVID-19 Risk Screen Screening Information COVID-19 Screen Date: 03/09/22 Exposure 21 Days Family/Household +COVID Last 21 Days: No Exposure 10 Days Any COVID Exposure Last 10 Days: No Symptoms Last 10 Days Experienced COVID Sx Last 10 Days: No + COVID 0-90 Days COVID + in Last 0-90 Days: No
[~2022-03-31 06:30] MED LIST: ACETAMINOPHEN 500 MG TAB PO SCH; BUPIVACAINE 0.5 % 5 MG/1 ML PF 10ML VIAL ONE; FAMOTIDINE 20 MG TAB PO SCH; GABAPENTIN 300 MG CAP PO SCH; LR 60ML/HR IV SCH; ORTHO JOINT MIX INFIL SCH; ROPIVACAINE 0.5% 5 MG/ML 30 ML VIAL ONE; TRANEXAMIC ACID 1,000 MG **IV Intra-op IV SCH; TRANEXAMIC ACID 1,000 MG **IV Pre-op IV SCH; ceFAZolin 2000MG 2,000 MG/15 ML SYR IV SCH; dexAMETHasone 4 MG TAB PO SCH
[2022-03-31] MEDS ORDERED: LIDOCAINE 2% MPF LOCAL 5 ML VIAL INFIL ONE (08:07)
[2022-03-31] MEDS ORDERED: PROPOFOL IV EMULSION 10 MG/ML 20 ML VIAL IV ONE (08:07)
[2022-03-31] MEDS ORDERED: MIDAZOLAM HCL 1 MG/ML 2ML VIAL ONE (08:07)
[2022-03-31] MEDS ORDERED: fentaNYL citrate 100 MCG/2 ML VIAL ONE (08:07)
[2022-03-31] MEDS ORDERED: ePHEDrine sulfate 50 MG/ML AMP IV PRN (08:20)
[2022-03-31] MEDS ORDERED: fentaNYL citrate 100 MCG/2 ML VIAL IV PRN (08:20)
[2022-03-31] MEDS ORDERED: ONDANSETRON INJ 2 MG/ML 2 ML VIAL IV PRN (08:20)
[2022-03-31] MEDS ORDERED: ATROPINE SULFATE 0.1 MG/ML 10ML SYR IV PRN (08:20)
--- NOTE | 2022-03-31 09:25 | History & Physical Bridge Note ---
Date of Service March 31, 2022 History & Physical Bridge Note I have examined the patient, reviewed the History & Physical and in the interval since the performance of the History & Physical I have noted the following changes of clinical significance: no changes noted
[2022-03-31] MEDS ORDERED: ORTHO JOINT ANESTHETIC ONE (09:44)
[2022-03-31] MEDS ORDERED: ONDANSETRON INJ 2 MG/ML 2 ML VIAL ONE (10:37)
[2022-03-31] MEDS ORDERED: ePHEDrine sulfate 50 MG/ML AMP ONE (10:38)
[2022-03-31] MEDS ORDERED: SODIUM CHLORIDE 0.9% INJ 10 ML VIAL ONE (10:38)
--- NOTE | 2022-03-31 11:00 | Operative Report ---
PG Post Operative Report Pre & Post Diagnosis Operation Date: 03/31/22 09:05 Pre-Op Diagnosis: Degenerative joint disease right knee. Post-Op Diagnosis: Degenerative joint disease right knee. I identified the patient and participated in the time-out.: Yes Procedure Operation Date: 03/31/22 09:05 Actual Procedures p Right Total Knee Arthroplasty(Right) - Dwight Allen DO Surgeon Dwight Allen DO Insulation Packer Jerod Angela PA-C Estimated Blood Loss 20 Findings Consistent with Post-Op Diagnosis Specimens Right femoral and tibial bone Description of Procedure Implants used: I used a Clary Persona total knee arthroplasty system with a size 7 standard femur, D tibia, 31 oval patella, and a size 12 medial congruent polyethylene bearing. All components were cemented in place with Biomet cement. Yesenia arrived [facility] for the above procedure. She was seen in the preoperative holding area and the operative extremity was identified and signed. She was given a preoperative antibiotic, TXA, a spinal anesthetic and an adductor nerve block. She was taken back to the operating room and laid on the table in supine position. She was given basic sedation. The operative knee was then prepped and draped in sterile fashion. A timeout was done, and the patient and the operative extremity was properly identified. A midline incision was made directly over the patella. Dissection was taken down to the extensor mechanism. A midvastus arthrotomy was used. The medial retinaculum was released and the fat pad was mostly excised. The knee was flexed and the ACL, PCL, and meniscus were removed. A drill was sent down the center of the femoral canal followed by an intramedullary dmitry. Off that dmitry a distal femoral cutting block was placed. 9 mm was resected off the distal femur at 5 of valgus. A posterior referencing AP sizing guide was then placed on the distal femur. The femur measured to be a size 7. 2 drill holes were placed in 3 of external rotation. A 4-in-1 cutting block was then impacted into place. Anterior, posterior, and chamfer cuts were then made. The proximal tibia was then exposed. An external tibial alignment guide was placed. A tibial cut guide was then anchored in place and the proximal tibia was then resected. The posterior aspect of the knee was then opened up and any additional meniscus fragments and osteophytes were removed. The tibia measured to be a size D. The tibial plate was then placed in the appropriate rotation and the tibia was drilled and punched. Trial components were then placed. I used a size 12 medial congruent polyethylene insert. The knee was brought through a full range of motion and felt to be stable. The peg holes for the femoral component were then drilled. The patella was then everted and 9 mm was resected off the posterior aspect of the patella. The patella measured to be a size 31 oval. 3 peg holes were then drilled. A trial patella was placed. The knee was once again brought through a full range of motion and felt to be stable. Trial components were then removed. The surrounding soft tissues were injected with 100 cc of an orthopedic pain control cocktail. All components were then cemented into place with Biomet cement. The final polyethylene insert was then snapped into place. Once cement was dry the tourniquet was deflated. Hemostasis was obtained. A dilute betadyne lavage was then done for 3 minutes. The joint was then irrigated with normal saline solution. The midvastus arthrotomy was then closed with #1 Vicryl suture. The skin was closed with 2-0 Vicryl, 3-0V lock suture, and caty. A soft compressive dressing was placed. She was then transferred to a hospital bed and taken to the postanesthesia care unit in stable condition. She tolerated the procedure well. Jerod Culp PA-C, was present for the entire procedure. He was critical for patient positioning, prepping, draping, retraction exposure, wound closure and application of sterile dressing. I attest to the content of the Intraoperative Record and any orders documented therein. Any exceptions are noted below.
--- NOTE | 2022-03-31 11:15 | XRay Report ---
XR knee RT 1 or 2V routine HISTORY: 86 years-old Female Surgical Post Op right knee total joint arthroplasty COMPARISON: 12/05/2021 TECHNIQUE: 2 views of the right knee FINDINGS: Total joint arthroplasty with patellar resurfacing. Anterior midline skin caty with expected posto perative soft tissue swelling and deep tissue air. No dislocation or unexpected opaque foreign body. An ill-defined cortical lucency involves the lateral distal femoral metaphysis on the AP view. Arteri al calcifications. IMPRESSION: 1. Satisfactory alignment of the total joint arthroplasty. 2. Ill-defined cortical lucency of the lateral distal femoral metaphysis may be projectional. Attenti on at follow-up recommended. ACT 112: Negative or not required by law. The above report was generated using voice recognition software. It may contain grammatical, syntax o r spelling errors. Electronically signed by: Valentín Tai M.D. 03/31/2022 11:14 AM
--- NOTE | 2022-03-31 11:51 | Anesthesiology Progress Note ---
Date of Service March 31, 2022 Anesthesia Post Procedure Vital Signs Vital Signs: Temp Pulse Pulse Resp BP BP Pulse Ox 03/31/22 11:35 62 14 126/59 L 94 03/31/22 11:25 64 20 127/74 96 03/31/22 11:15 60 15 144/64 H 100 03/31/22 11:05 59 L 16 132/67 100 03/31/22 10:57 97.2 F L 76 16 131/86 97 03/31/22 07:05 98.1 F 63 18 143/87 H 97 O2 Del Method O2 Flow Rate 03/31/22 11:35 Room Air 03/31/22 11:25 Room Air 03/31/22 11:15 Oxymask 5 03/31/22 11:05 Oxymask 10 03/31/22 10:57 Oxymask 10 03/31/22 07:05 Room Air Pain Intensity Right Knee: Pain Intensity: 5 Transfer of Care Handoff Completed per policy Notes Mental Status: alert / awake / arousable and participated in evaluation Patient Amnestic to Procedure: Yes Nausea / Vomiting: adequately controlled Pain: adequately controlled Airway Patency, RR, SpO2: stable & adequate BP & HR: stable & adequate Hydration State: stable & adequate Neuraxial Anesthesia: was administered and sensory block is resolving Anesthetic Complications: no major complications apparent and Pt Satisfied with anesthetic care
[2022-03-31] MEDS: SODIUM CHLORIDE 0.9% 1000ML 1,000 ML IV SCH ×2 (13:20→23:52)
[2022-03-31] MEDS ORDERED: HYDROmorphone INJ 0.5 MG/0.5 ML SYR IV PRN (13:26)
[2022-03-31] MEDS ORDERED: MAGNESIUM HYDROXIDE SUSP 30 ML UDC PO PRN (13:26)
[2022-03-31] MEDS ORDERED: METOCLOPRAMIDE HCL INJ 5 MG/ML 2 ML VIAL IV PRN (13:26)
[2022-03-31] MEDS ORDERED: NALOXONE HCL 0.4 MG/1 ML VIAL/CARP IV PRN (13:26)
[2022-03-31] MEDS ORDERED: bisacodyL 10 MG SUPP PR PRN (13:26)
[2022-03-31] MEDS: KETOROLAC TROMETHAMINE 15 MG/ML VIAL IV SCH ×2 (14:07→20:17)
--- NOTE | 2022-03-31 15:44 | XRay Report ---
XR knee RT 1 or 2V routine HISTORY: 86 years-old Female just a good AP of right knee right knee arthroplasty COMPARISON: Knee radiographs of same day at 10:59 AM TECHNIQUE: AP view of the right knee FINDINGS: Repositioned AP view demonstrates no acute fracture or malalignment. The previously questioned area o f cortical irregularity involving the distal femur therefore was projectional/artifactual. Total join t arthroplasty with anterior midline skin caty, expected postoperative soft tissue swelling with d eep tissue air. Arterial calcifications. IMPRESSION: Total joint arthroplasty with expected postoperative changes. ACT 112: Negative or not required by law. The above report was generated using voice recognition software. It may contain grammatical, syntax o r spelling errors. Electronically signed by: Valentín Tai M.D. 03/31/2022 3:43 PM
[2022-03-31] MEDS: ceFAZolin 1000MG 1,000 MG/7.5 ML SYR IV SCH ×2 (16:47→23:28)
[2022-03-31] MEDS: oxyCODONE HCL IR 5 MG TAB (IMMEDIATE RELEASE) PO PRN ×2 (18:29→23:26)
[2022-03-31] MEDS: DOCUSATE SODIUM 100 MG CAP PO SCH (20:18)
[2022-03-31] MEDS: SENNA 8.6 MG TAB PO SCH (20:18)
[2022-03-31] MEDS: ROSUVASTATIN CALCIUM 10 MG TAB PO SCH (20:18)
[2022-03-31] MEDS: cilostazoL 100 MG TAB PO SCH (20:18)
[2022-03-31] MEDS: ASPIRIN 81 MG ECTAB PO SCH (20:18)
[2022-04-01] MEDS: KETOROLAC TROMETHAMINE 15 MG/ML VIAL IV SCH ×2 (03:07→08:38)
--- NOTE | 2022-04-01 06:18 | Orthopedic Progress Note ---
Date of Service April 01, 2022 Assessment & Plan (1) Status post right knee replacement: Overall she seems to be doing fairly well. She is having a little bit of pain in the right knee. It is unclear how much she was up and ambulating yesterday. She will be seen by physical therapy today for ambulation and range of motion exercises. She is on aspirin for DVT prophylaxis. If she does well with therapy, and if she has help set up at home, she can be discharged home later today. If she is not doing well she can stay until tomorrow. The nursing staff can change her dressing later today. Tyrell Patterson was seen and examined at bedside this morning. Overall she is doing fairly well. She is having some soreness in her right knee. She had some oxycodone last night. She has no other complaints.. Review of Systems All systems reviewed & are unremarkable except as noted in HPI & below. Physical Exam On physical examination of the right knee, the dressing is clean and dry. Her leg is out full extension. She has active dorsiflexion plantarflexion of her right ankle.. Results & Data Results & Data Laboratory Results . Diagnostic Findings Postoperative x-rays of the right knee show the prosthesis to be in anatomic alignment without any evidence of fracture, desiccation, or loosening. PG Care Time/CCT Total # of Minutes Spent Total Time Spent with Patient: Total time spent is greater than 50% in coordination of care (as documented) at patient's floor/unit and/or counseling patient: Coding Level of Care Code 75808 Post Operative Follow-Up Diagnoses Status post right knee replacement Z96.651
[2022-04-01] MEDS ORDERED: dexAMETHasone 4 MG TAB PO SCH (08:00)
[2022-04-01] MEDS: DOCUSATE SODIUM 100 MG CAP PO SCH ×2 (08:34→20:07)
[2022-04-01] MEDS: ASPIRIN 81 MG ECTAB PO SCH ×2 (08:34→20:07)
[2022-04-01] MEDS: cilostazoL 100 MG TAB PO SCH ×2 (08:34→20:07)
[2022-04-01] MEDS: MULTIVITAMIN TAB PO SCH (08:35)
[2022-04-01] MEDS: LEVOTHYROXINE SODIUM 25 MCG TABLET PO SCH (08:35)
[2022-04-01] MEDS: oxyCODONE HCL IR 5 MG TAB (IMMEDIATE RELEASE) PO PRN ×2 (10:58→20:07)
[2022-04-01] MEDS: SENNA 8.6 MG TAB PO SCH (20:06)
[2022-04-01] MEDS: ROSUVASTATIN CALCIUM 10 MG TAB PO SCH (20:07)
[2022-04-02] MEDS: oxyCODONE HCL IR 5 MG TAB (IMMEDIATE RELEASE) PO PRN ×4 (01:49→19:50)
--- NOTE | 2022-04-02 06:53 | Orthopedic Progress Note ---
Date of Service April 02, 2022 Assessment & Plan (1) Status post right knee replacement: Overall she is doing well. She is not having much pain in the right knee. She will be seen again by physical therapy today for ambulation and range of motion exercises. She can be discharged home later today. She is on aspirin for DVT prophylaxis. The nursing staff can change her dressing before discharge. She will follow-up with orthopedics in 2 weeks. Tyrell Patterson was seen and examined bedside this morning. Overall she is doing well. She was having some pain yesterday. She was able to ambulate with physical therapy. We decided to keep her in extra day. She is feeling little better today. She has no new complaints.. Review of Systems All systems reviewed & are unremarkable except as noted in HPI & below. Physical Exam On physical examination of the right knee, the dressing is clean and dry. Her leg is out in full extension. She has active dorsiflexion and plantarflexion of the right ankle.. Results & Data Results & Data Laboratory Results . Diagnostic Findings . PG Care Time/CCT Total # of Minutes Spent Total Time Spent with Patient: Total time spent is greater than 50% in coordination of care (as documented) at patient's floor/unit and/or counseling patient: Coding Level of Care Code 10358 Post Operative Follow-Up Diagnoses Status post right knee replacement Z96.651
--- NOTE | 2022-04-02 06:54 | Discharge Summary ---
Date of Service April 02, 2022 Principal Diagnosis Same as "Discharge Diagnosis" noted below under Discharge Instructions. Discharge Exam On physical examination of the right knee, the dressing is clean and dry. Her leg is out in full extension. She has active dorsiflexion and plantarflexion of the right ankle.. Discharge Data Procedures Performed Operation Date: 03/31/22 09:05 Actual Procedures p Right Total Knee Arthroplasty(Right) - Dwight Allen DO Ordered Studies 03/31/22 05:00 US - OR guided needle placemen Routine Hospital Course (1) Status post right knee replacement: On March 31, 2022 Yesenia arrived at [facility] and underwent a right knee replaced without complication. She had a spinal anesthetic. Postoperatively she was started on aspirin for DVT prophylaxis and transferred to the general orthopedic floors. Her hospital course was uneventful. On postop day #1, her vital signs were stable and her pain was well controlled. She was able to participate well with physical therapy doing ambulation and range of motion exercises. On postop day #2, she continued to do well. She worked well once again with physical therapy. She was then discharged home. She will follow-up orthopedics in 2 weeks. PG Care Time/CCT Total # of Minutes Spent Total Time Spent with Patient: Total time spent is greater than 50% in coordination of care (as documented) at patient's floor/unit and/or counseling patient: Discharge Plan Discharge Items Patient Disposition: Home - Home Health Services Reason For Visit: STATUS POST RIGHT KNEE REPLACEMENT Discharge Diagnosis: Right knee replacement Activity: Per Instructions section Non-emergency contact: Surgeon Call non-emergency contact if: your wound has increased redness and your wound has increased drainage Follow-up/Referrals: Dre Au DO [Primary Care Provider] - Diet: Regular Addtl Attending Provider Instructions: Activity and Therapy Recommendations: * If you are using [facility] then therapy will be provided at your home until they feel you have accomplished all of your goals. * If you are using [facility] then Physical Therapy will be provided until they feel you are ready to start Outpatient Physical Therapy. * If you are not using home therapy then Outpatient Physical Therapy should start about 3-5 days from your day of surgery. Therapy will last about 6-10 weeks * It is important not to put a pillow under your knee when you are relaxing or sleeping. It is just as important to make sure you are getting your knee perfectly straight as it is to regain your knee bend. * You were shown a series of exercises in the hospital. Do these exercises three times each day including the exercises you were shown in physical therapy. * Get up and walk several times each day. For the first four weeks, try not to stand or walk for more than one hour at a time. If you do stand or walk for more than one hour, you will not hurt anything, but your leg will likely swell. * As you feel comfortable, you may change from the walker or crutches to a cane and then to independent walking. Medications: * Narcotic You will likely be sent home from the hospital with a prescription for the narcotic pain medication that worked best throughout your stay. * Aspirin Most patients will be required to take Aspirin 81mg twice a day for 6 weeks after surgery. This is obtained [id number] and a prescription is not necessary. * Other medications may be prescribed for specific circumstances. If you have any questions, please call the office at . * Resume previous home medications unless otherwise instructed TEDs/Elastic Stockings: The white elastic stockings help limit swelling and prevent blood clots from forming in your legs.~ The more you wear them, the more they work. Wear them for six weeks. Dressing Care: The dressing can be changed after physical therapy on postop day #1. Daily dry dressing changes for a few days, especially if the incision is still draining some. If the incision is not draining then you may leave the caty open to air. If there is a little bit of drainage or if the caty are getting stuck on your clothing then cover the incision with a dry dressing. The caty will be removed at your 2 week follow-up appointment. Showering: You may shower 5 days from the day of surgery as long as the incision is no longer draining. You may shower with the caty exposed. Let soapy water run over the caty and pat them dry. Do not scrub or soak the incision. Things To Watch For: * Drainage from the incision site that occurs more than one week after your surgery. * Increased redness at the incision site. * Fever above 102 degrees Fahrenheit. * Unusual chest pain or shortness of breath. * Call [facility] at with any of the above problems Follow-Up Visit: Follow-up with Dr. Allen's PA (Dwight Briggs) 2-3 weeks after your day of surgery. He will remove your caty and answer any questions. If you have any additional questions or concerns, Dr Allen is usually in the office at the same time and will be available An appointment was probably scheduled when you signed-up for surgery in the office. If you have any questions call Office Instructions: More detailed instructions as well as Frequently Asked Questions were provided in a folder by our office when you signed-up for surgery. Please review these instructions when you get home. If you have any further questions or concerns, please feel free to call the office at [phone] Pending Studies at Discharge: No Stand-Alone Forms: My [facility] Medications and DC Order Prescriptions: New oxycodone-acetaminophen 5-325 mg tablet 1 tab PO Q6H PRN (Reason: pain) Qty: 30 0RF Continued levothyroxine 25 mcg tablet 25 mcg PO QAM calcium carbonate [Calcium 600] 600 mg calcium (1,500 mg) Tablet 1,200 mg PO QPM cholecalciferol (vitamin D3) [Vitamin D3] 25 mcg (1,000 unit) Capsule 25 mcg PO QPM rosuvastatin [Crestor] 10 mg tablet 10 mg PO QPM cilostazol 100 mg Tablet 100 mg PO BID nitroglycerin 0.4 mg Tablet, Sublingual 0.4 mg sublingual UD PRN (Reason: esophageal spasms) cholestyramine (with sugar) 4 gram Powder In Packet 4 g PO BID PRN (Reason: Diarrhea) Rx Instructions: administer w/meal; avoid other meds within 1hr before or 4-6hr after dose aspirin [Kalyan Low Dose Aspirin] 81 mg Tablet,Delayed Release (Dr/Ec) 81 mg PO QAM 42 Days Qty: 0 0RF Admission Data Admit Date/Time: 03/31/22 10:58 Attending Provider: Dwight Allen Admit Provider: Dwight Allen Primary Care Provider: Dre Au
[2022-04-02] MEDS: MULTIVITAMIN TAB PO SCH (08:26)
[2022-04-02] MEDS: cilostazoL 100 MG TAB PO SCH ×2 (08:26→20:47)
[2022-04-02] MEDS: DOCUSATE SODIUM 100 MG CAP PO SCH ×2 (08:26→20:47)
[2022-04-02] MEDS: LEVOTHYROXINE SODIUM 25 MCG TABLET PO SCH (08:27)
[2022-04-02] MEDS: ASPIRIN 81 MG ECTAB PO SCH ×2 (11:35→20:47)
[2022-04-02] MEDS ORDERED: HYDROmorphone HCL 2 MG TAB PO STA (12:01)
[2022-04-02] MEDS: ROSUVASTATIN CALCIUM 10 MG TAB PO SCH (20:47)
[2022-04-02] MEDS: SENNA 8.6 MG TAB PO SCH (20:47)
[2022-04-03] MEDS: oxyCODONE HCL IR 5 MG TAB (IMMEDIATE RELEASE) PO PRN ×2 (06:23→17:09)
[2022-04-03] MEDS: ASPIRIN 81 MG ECTAB PO SCH (08:28)
[2022-04-03] MEDS: MULTIVITAMIN TAB PO SCH (08:29)
[2022-04-03] MEDS: cilostazoL 100 MG TAB PO SCH (08:29)
[2022-04-03] MEDS: LEVOTHYROXINE SODIUM 25 MCG TABLET PO SCH (08:30)
[2022-04-03] MEDS: DOCUSATE SODIUM 100 MG CAP PO SCH (08:30)
--- NOTE | 2022-04-03 15:20 | Orthopedic Progress Note ---
Date of Service April 03, 2022 Assessment & Plan (1) Status post right knee replacement: Overall she is doing very well. The pain in her right knee is much better controlled today. She has been working well with physical therapy. She is on aspirin for DVT prophylaxis. She can be discharged home later today. She will follow-up with orthopedics in 2 weeks. Tyrell Patterson was seen and examined at bedside this afternoon. Overall she is doing well. She seems to be making progress. Her pain is better controlled today. She has no complaints.. Review of Systems All systems reviewed & are unremarkable except as noted in HPI & below. Physical Exam On physical examination of the right knee, the dressing has been changed. The bandage is mostly dry. She is neurovascular intact.. Results & Data Results & Data Laboratory Results . Diagnostic Findings . PG Care Time/CCT Total # of Minutes Spent Total Time Spent with Patient: Total time spent is greater than 50% in coordination of care (as documented) at patient's floor/unit and/or counseling patient: Coding Level of Care Code 80192 Post Operative Follow-Up Diagnoses Status post right knee replacement Z96.651
== END 2022-04-03 17:31 | disposition home health service (06) ==
LOC: 3E 06:30 → ASU 06:30